=== PATIENT | female | born 1990 | race Caucasian/White ===

== ENCOUNTER 2020-01-07 07:30 | Inpatient (IN) ==
[2020-01-07] MEDS ORDERED: LACTATED RINGER'S 1,000 ML IV PRN (07:45)
[2020-01-07] MEDS ORDERED: OXYTOCIN 30 UNITS/500 ML BAG IV PRN ×2 (07:45)
[2020-01-07 08:04] LABS: Hematocrit (blood only) 29.6 % (37-47); Hemoglobin 9.2 g/dL (12.0-16.0); Mean Corpuscular Hemoglobin 25.3 pg (25-34); Mean Corpuscular Volume 81.3 fL (80-100); Mean Platelet Volume 10.5 fL (7.4-10.4); Platelet Count 260 K/uL (130-400); RDW Coefficient of Variation 15.2 % (11.5-14.5); RDW Standard Deviation 44.9 fL (36.4-46.3); Red Blood Count 3.64 M/uL (4.2-5.4); White Blood Count 10.81 K/uL (4.8-10.8)
[2020-01-07 08:24] LABS: Mean Corpuscular Hgb Conc 31.1 g/dL (32-36)
--- NOTE | 2020-01-07 08:31 | History & Physical Report ---
Date of Service January 07, 2020 Assessment & Plan (1) Encounter for induction of labor: Labs ordered including CMP due to HTN (138/92) on arrival. H/H 9.2/29.6; will continue to monitor patient. Proceed with induction of labor per Pitocin augmentation protocol. Pt does desire epidural for pain control. Consult to anesthesiology placed. Will continue to monitor patient. Anticipate . (2) Insulin controlled gestational diabetes mellitus (GDM) during , antepartum: Will continue to monitor blood glucose levels. Manage for A2GDM protocol. (3) Chlamydia infection affecting in third trimester: (4) : Admission and Anticipated Discharge Date Admission Date: January 07, 2020 History of Present Illness Primary Care Provider: Rupert Patel MD Jing Orona is a 29 y/o female currently at 39 WGA with an BRENNAN 01/14/20 as determined by LMP who is here for IOL. Her was complicated by late presentation for care (at 30 weeks), A2GDM, and persistent chlamydia infection. It is noted that her last was about 7 years ago (delivered 10/01/12) and with that she had pre-eclampsia; the delivery was a forceps-assisted vaginal delivery. Pt is doing well this morning. She denies any specific pain. No n/v. Tolerated dinner last night. Pt did not take her nightly insulin last night; last dose of insulin was Saturday night (01/04). - contractions; + movement; - fluid loss; some minimal bloody show/blood- tinged mucus Blood type: A+ Antibody screen: neg H.2 (today) Hct: 29.6 (today) WBC: 10.81 (today) Plt: 260 (today) Rubella: immune (11/11/19) VDRL/RPR: neg (11/11/19) Gonorrhea: neg (11/11/19) Chlamydia: POSITIVE (11/11/19 and repeat positive HIV: neg (11/11/19) HbSAg: neg (11/11/19) GBS: negative (12/22/19) COVID-19 negative (01/05/20) Other screens: CF: negative SMA: negative panorama: low risk, female Allergies Allergy/AdvReac Type Severity Reaction Status Date / Time Penicillins Allergy Unknown Unknown Verified 01/07/20 07:57 Home Medications Home Medications Medication Instructions Recorded Confirmed Type apple cider vinegar PO 10/30/19 01/06/20 History multivitamin with iron PO 11/11/19 01/06/20 History insulin NPH isoph U-100 human 100 10 units SQ QPM #10 ml 12/24/19 01/06/20 Rx unit/mL subcutaneous suspension azithromycin 500 mg tablet 1,000 mg PO DAILY 1 Days #2 tab 12/31/19 01/06/20 Rx cephalexin 500 mg capsule 500 mg PO TID 7 Days #21 cap 12/31/19 01/06/20 Rx Patient History Medical History (Updated 01/07/20 @ 10:01 by Alec Traore MD) Asthma Chlamydia infection affecting in third trimester Encounter for anatomic survey Hx of biophysical profile Insulin controlled gestational diabetes mellitus (GDM) during , antepartum Varicella vaccine Surgical History (Updated 01/07/20 @ 10:00 by Alec Traore MD) History of gastric bypass S/P cholecystectomy S/P dilation and curettage S/P wisdom tooth extraction Family History Grandmother (Paternal) Diabetes Myocardial infarction Heart disease Grandfather (Maternal) Diabetes Myocardial infarction Other Dyslipidemia Social History (Updated 11/06/19 @ 14:15 by Josette Alberts) Smoking Status: Former smoker Hx Alcohol Use: No Hx Substance Use: No Preferred Language: Palauan Communication Ability: Effective Beliefs That Will Affect Care: None marital status: Single marital status details: Marcus Robert ( [phone] Current Living Situation Comment: lives with father and daughter, 1 dog, current occupational status: employed current occupation: [employer] WORK[employer] Feels Safe at Home: Yes Review of Systems Denies fever, chills, sweats Denies shortness of breath, difficulty breathing, chest pain, palpitations, chest pressure. Denies breast pain. Denies dysuria. Denies leg pain. Denies headache or changes in vision. Physical Exam Physical Exam: General: Alert, oriented. No acute distress. Cardiac: Regular rate and rhythm, no murmurs/rubs/gallops. Respiratory: Clear to auscultation bilaterally a/p, no wheezes/rales/rhonchi. No increased work of breathing. Symmetrical chest rise. No respiratory distress. Abdomen: Gravid; full term. No tenderness to palpation. EFW 8-9# Pelvic: Dilation 4.5cm; Effacement 50%; Station -[address] Payton External FHT and external uterine monitors used; Category I tracing; moderate FHT variability, baseline 140bpm. Lower Extremities: 1+ bilateral lower extremity edema. No deep calf pain. Gloria's negative bilaterally Results & Data ([facility]) Vital Signs (Past 12 Hours) Vital Signs Pulse BP 01/07/20 07:42 83 138/92 Code Status & VTE Plan VTE Prophylaxis Plan VTE Prophylaxis will be ordered: No Supervising Physician Co-Signing Physician Notes Resident Physician Supervision Note: I was present with Dr. Castellon during the history and exam. I discussed the case with the resident and agree with the findings and plan as documented in the note. Any exceptions or clarifications are listed here: The patient is a 29-year-old 2 para 1 with an EDC of 13 January at 39-0/7 weeks gestational age who is admitted for induction for poorly controlled gestational diabetes on insulin. Patient did not present until 30 weeks gestational age for new OB visit. Sugars have been only moderately controlled and the patient has been somewhat noncompliant with insulin injections. Patient forgot to do her insulin on the evening prior to admission. course is also been remarkable for persistently abnormal chlamydia culture. This was secondary to the partner not being treated. The patient and her partner were allegedly treated at 38 weeks gestational age. Antibiotics was prescribed by me for both patient and partner. Plan induction of labor per Pitocin protocol. Pediatrics aware of the patient. Pain control as needed. Anticipate vaginal delivery. Documented By: Gabino Alicea Jr, MD, FACOG
[2020-01-07] MEDS ORDERED: fentaNYL citrate 100 MCG/2 ML VIAL ONE ×2 (09:34→09:42)
[2020-01-07] MEDS ORDERED: PROPOFOL IV EMULSION 10 MG/ML 20 ML VIAL IV ONE ×2 (09:40→10:42)
[2020-01-07] MEDS ORDERED: LIDOCAINE HCL 2% MPF (LOCAL) 5 ML VIAL INFIL ONE (09:40)
[2020-01-07] MEDS ORDERED: CEFAZOLIN 250 MG/ML 1 GM VIAL ONE (09:40)
[2020-01-07 09:41] LABS: Albumin Level 2.3 gm/dl (3.4-5.0); Calcium 8.7 mg/dl (8.5-10.1); Creatinine Clr Calc Pharmacy 143.4 ml/min; Est GFR (African American) 128.7; Potassium 3.9 mmol/L (3.5-5.1)
[2020-01-07] MEDS ORDERED: OXYTOCIN 10 UNITS/ML VIAL ONE ×3 (09:41→09:42)
[2020-01-07 09:45] LABS: Albumin Globulin Ratio 0.6 (0.9-2); Bilirubin,Total 0.2 mg/dl (0.2-1); Globulin 4.1 gm/dl (2.5-4.0); Total Protein 6.4 gm/dl (6.4-8.2)
[2020-01-07] MEDS ORDERED: ONDANSETRON INJ 2 MG/ML 2 ML VIAL ONE (09:51)
[2020-01-07] MEDS ORDERED: SUCCINYLCHOLINE 100MG/5ML SYR IV ONE (09:51)
[2020-01-07] MEDS ORDERED: ONDANSETRON INJ 2 MG/ML 2 ML VIAL IV PRN ×2 (10:01→10:24)
[2020-01-07] MEDS ORDERED: HYDROmorphone INJ 1 MG/ML SYRINGE IV PRN (10:01)
[2020-01-07] MEDS ORDERED: KETOROLAC 30 MG/ML VIAL IV PRN ×2 (10:01→10:24)
[2020-01-07] MEDS ORDERED: ATROPINE SULFATE 0.1 MG/ML 10ML SYR IV PRN (10:01)
[2020-01-07] MEDS ORDERED: PROMETHAZINE HCL 12.5 MG in SODIUM CHLORIDE 0.9% 50 ML IV PRN (10:01)
--- NOTE | 2020-01-07 10:01 | Anesthesiology Consultation ---
Date of Service January 07, 2020 Assessment & Plan (1) Encounter for pre-operative examination: Chart Review Chart Review: Acceptable Risk for Surgery (Emergent procedure) History Surgery Operation Date: 01/07/20 09:30 Proposed Procedures p Section in LD - Gabino Alicea Jr, MD, FACOG Height/Weight Height: 5 ft 6.5 in Weight: 108.136 kg Allergies Allergy/AdvReac Type Severity Reaction Status Date / Time Penicillins Allergy Unknown Unknown Verified 01/07/20 07:57 Medications Home Medications Medication Instructions Recorded Confirmed Last Taken apple cider vinegar PO 10/30/19 01/06/20 Unknown multivitamin with iron PO 11/11/19 01/06/20 Unknown insulin NPH isoph U-100 human 100 10 units SQ QPM #10 ml 12/24/19 01/06/20 Unknown unit/mL subcutaneous suspension azithromycin 500 mg tablet 1,000 mg PO DAILY 1 Days #2 tab 12/31/19 01/06/20 Unknown cephalexin 500 mg capsule 500 mg PO TID 7 Days #21 cap 12/31/19 01/06/20 Unknown Active Medications Generic Name Dose Route Start Last Admin Trade Name Freq PRN Reason Stop Dose Admin Lactated Ringer's 1,000 mls @ 125 mls/hr 01/07/20 07:45 01/07/20 08:51 Lr IV 01/09/20 07:44 125 mls/hr .Q8H PRN Administration L&D Protocol Protocol Oxytocin 30 units in 500 mls @ 2 mls/hr 01/07/20 07:45 01/07/20 08:52 Pitocin IV 01/09/20 07:44 0.12 units/hr .Q24H PRN 2 mls/hr Labor Induction/Augmentation Administration Protocol 0.12 UNITS/HR NPO Last Intake of Fluids Comment: Sips Last Intake of Solids Comment: Unknown Past Medical History Medical History (Updated 01/07/20 @ 10:01 by Alec Traore MD) Asthma Chlamydia infection affecting in third trimester Encounter for anatomic survey Hx of biophysical profile Insulin controlled gestational diabetes mellitus (GDM) during , antepartum Varicella vaccine Past Family History Family History Grandmother (Paternal) Diabetes Myocardial infarction Heart disease Grandfather (Maternal) Diabetes Myocardial infarction Other Dyslipidemia Past Surgical History Surgical History (Updated 01/07/20 @ 10:00 by Alec Traore MD) History of gastric bypass S/P cholecystectomy S/P dilation and curettage S/P wisdom tooth extraction Past Anesthesia History No Hx of Anesthesia Complications History of PONV No Hx of PONV and No Hx of Motion Sickness Social History Smoking Status: Former smoker Hx Alcohol Use: No Hx Substance Use: No Physical Exam Vital Signs Last Vital Signs Temp 36.9 C 01/07/20 07:44 Pulse 76 01/07/20 08:33 BP 136/83 01/07/20 08:33 Testing Laboratory Results 01/07/20 07:53 01/07/20 08:32 01/07/20 08:10 POC Glucose 119 H
[2020-01-07] MEDS ORDERED: SUPERCREAM 0.870% 15 GM JAR EXT PRN (10:24)
[2020-01-07] MEDS ORDERED: BENZOCAINE 20% AER SPR 82.5 GM CAN EXT PRN (10:24)
[2020-01-07] MEDS ORDERED: DiphenhydrAMINE HCL 50 MG/ML VIAL IV PRN (10:24)
[2020-01-07] MEDS ORDERED: DIPHTHERIA/TETANUS/PERTUSSIS 0.5 ML SYR/VIAL IM ONE (10:24)
[2020-01-07] MEDS ORDERED: HYDROCORTISONE ACETATE 25 MG SUPP PR PRN (10:24)
[2020-01-07 10:26] LABS: Base Excess Cord Venous Blood -5.2 mEq/L (-7.7-1.9); Cord Venous Blood HCO3 22 mmol/L (18.4-26.8); Cord Venous Blood PCO2 50 mmHg (30.4-57.2); Cord Venous Blood PO2 33 mmHg (14.1-43.3); Cord Venous Blood pH 7.27 (7.20-7.44)
[2020-01-07] MEDS ORDERED: NALOXONE HCL 0.4 MG/1 ML VIAL/CARP IV PRN (10:26)
[2020-01-07] MEDS ORDERED: MORPHINE SULFATE PCA 30 MG/30 ML IV PRN (10:26)
[2020-01-07 10:27] LABS: Base Excess Cord Arterial Bld -9.9 mEq/L (-9-1.8); CO2 Cord Arterial Blood 104 mmHg (39.1-73.5); HCO3 Cord Arterial Blood 25 mmol/L (19.7-28.5)
[2020-01-07 10:28] LABS: PO2 Cord Arterial Blood < 10 mmHg (4.1-31.7)
[2020-01-07] MEDS ORDERED: SODIUM CHLORIDE 0.9% 1000ML 1,000 ML IV SCH (10:30)
[2020-01-07] MEDS ORDERED: LACTATED RINGER'S 1,000 ML IV SCH (10:30)
[2020-01-07] MEDS ORDERED: MORPHINE SULFATE PCA 30 MG/30 ML ONE (10:32)
--- NOTE | 2020-01-07 10:36 | XRay Report ---
XR KUB/Abdomen 1 view CLINICAL HISTORY: no surgical count COMPARISON STUDY: No previous studies for comparison. FINDINGS: The soft tissues, psoas shadows, renal outlines and intestinal gas pattern appear normal. T here is no evidence for bowel obstruction. No abnormal abdominal calcifications are seen. IMPRESSION: Normal study. No evidence for a radiopaque foreign body. ACT 112: Negative or not required by law. The above report was generated using voice recognition software. It may contain grammatical, syntax or spelling errors. Electronically signed by: Jian Burns M.D. 01/07/2020 10:35 AM
--- NOTE | 2020-01-07 10:44 | Obstetrical Progress Note ---
Date of Service January 07, 2020 Assessment & Plan (1) Late care affecting : (2) Insulin controlled gestational diabetes mellitus (GDM) during , antepartum: - heart rate tracing category 2 with variability and accelerations -We will check glucoses every 4 hours -Increase Pitocin per induction protocol ' Addendum note: Approximately 10 minutes after artificial rupture of membranes for clear fluid baby developed bradycardic episode. Repeat digital examination showed cord prolapse with heart rate in the 70s. scalp electrode applied and stat section called. Provider remained dislodging the vertex and movement could be palpated. The patient was then taken back to the operative room for a stat section. A verbal consent was obtained from the patient and father of the baby. In the operating room Montero catheter was placed. Last scalp electrode heart rate of 70 noted. Please see operative note for details. Admission and Anticipated Discharge Date Admission Date: January 07, 2020 Subjective (Late Entry secondary to stat C/S) 29-year-old 2 para 1 at 39 weeks gestational age being induced for poor control insulin-dependent gestational diabetes. Patient a late registrant at 30 weeks gestational age. course remarkable for persistent chlamydia infection secondary to partner not being treated. Patient and partner successfully treated at 38 weeks gestational age. Patient forgot to take her insulin on the evening of 05 January. Physical Exam Gastrointestinal (Abdomen): Abdomen: Gravid, vertex, positive heart tones, estimated weight of 7-1/2 pounds Genitourinary: Cervix: 3 to 4 cm dilated/50%/-2, artificial rupture of membranes for clear fluid, head well applied to cervix, intrauterine pressure catheter placed Results & Data ([facility]) Vital Signs (Past 12 Hours) Vital Signs Temp Pulse BP Pulse Ox 01/07/20 10:34 64 152/88 H 01/07/20 10:32 66 100 01/07/20 10:27 69 100 01/07/20 10:22 78 133/75 97 01/07/20 08:33 76 136/83 01/07/20 07:44 98.4 F 83 138/92 01/07/20 07:42 83 138/92 PG Care Time/CCT Total # of Minutes Spent Total Time Spent with Patient: Total time spent is greater than 50% in coordination of care (as documented) at patient's floor/unit and/or counseling patient: Coding Level of Care Code None Diagnoses Late care affecting O09.30 Insulin controlled gestational diabetes mellitus (GDM) during , antepartum O24.414
--- NOTE | 2020-01-07 10:48 | Post Operative Brief Note ---
PG Immediate Post Op with CF Date of Surgery January 07, 2020 Pre & Post Diagnosis Pre-Op Dx: 1) Term 2) Poor control GDM on Insulin 3) Late Care 4)Prolapsed Umbilical Cord Post-Op Dx: 1) Same Operation Date: 01/07/20 09:30 <No data on this case meets the specified criteria> I identified the patient and participated in the time-out.: Yes Procedure Stat Primary Low Cervical Transvers C/S Operation Date: 01/07/20 09:30 <No data on this case meets the specified criteria> Surgeon Gabino Alicea Jr, MD, FACOG Petroleum Geologist Pratima Estimated Blood Loss 800 Findings See Below (Viable female , Art pH-7.0, Venous pH 7.27, normal appearing tubes and ovaries bilaterally)
--- NOTE | 2020-01-07 11:00 | Operative Report (OR) ---
DATE OF OPERATION: 01/07/2020 PREOPERATIVE DIAGNOSES: 1. Term . 2. Poorly controlled gestational diabetes, on insulin. 3. Late care. 4. Umbilical cord prolapse. POSTOPERATIVE DIAGNOSES: 1. Term . 2. Poorly controlled gestational diabetes, on insulin. 3. Late care. 4. Umbilical cord prolapse. PROCEDURE PERFORMED: Stat primary low cervical transverse section. SURGEON: Gabino Alicea MD. DISASTER RECOVERY MANAGER: Martínez Andujar MD. ANESTHESIA: General. FINDINGS: Viable female with arterial cord pH of 7.0 and venous cord pH of 7.27. Normal-appearing tubes and ovaries bilaterally. PROCEDURE IN DETAIL: The patient was taken to the operating room in a stat fashion for a stat section for a prolapsed umbilical cord. Montero catheter was inserted and the surgeon's hand was removed from the vagina. Verbal consent had been obtained from the patient for the procedure. No sponge and needle count was done preoperatively secondary to the stat nature. The abdomen was prepped with Betadine. A Pfannenstiel-type incision was made down to the subcutaneous tissue, which was opened in the midline and manually extended vertically. Rectus muscles were and the peritoneal cavity was entered. Uterus was entered sharply and extended in a semilunar fashion. Viable female infant was delivered. Cord was clamped and cut and the baby was passed off to pediatrics who was in attendance for the delivery. Cord gases and cord blood samples were obtained. Placenta was delivered spontaneously and sent for pathological evaluation. The uterus was exteriorized and wiped clean of any residual blood tissue and/or clot. The uterine incision was closed with 2 layers of 4-0 Vicryl, the first a running locking stitch, the second an imbricating stitch. Hemostasis was achieved and the uterus was returned to the pelvic cavity. Pericolic gutters were cleared bilaterally of any blood tissue and/or clot. The pelvis was thoroughly irrigated with 1000 mL of warm saline. Uterine incision was inspected for hemostasis again, which was present. The rectus muscle was plicated in the midline with a running 2-0 Vicryl stitch. The fascia was closed laterally with a running 0 Vicryl suture. Subcutaneous tissue was reapproximated with interrupted 2-0 plain sutures and the skin incision was closed with a 4-0 Monocryl subcuticular suture. Because of the stat nature of the procedure and the inability to do a sponge and needle count preoperatively, a stat KUB was performed. My visual reading of the KUB showed no sponges or instruments or needles in the abdomen. The patient was then taken to the recovery room in satisfactory condition. I attest to the content of the Intraoperative Record and any orders documented therein. Any exception s are noted below.
[2020-01-07] MEDS: OXYTOCIN 20 UNITS in LACTATED RINGER'S 1,000 ML IV SCH ×2 (11:07→20:33)
[2020-01-07 13:58] LABS: Creatinine Urine Random 45.4 mg/dl; Protein Creatinine Ratio Urine 0.4 (0-0.2); Total Protein Urine Random 19.5 mg/dl (0-11.9)
[2020-01-07] MEDS ORDERED: MAG SULFATE 4GM BOLUS FROM BAG IV ONE (14:13)
[2020-01-07] MEDS ORDERED: MAGNESIUM SULFATE / WTR 40 GM/1,000 ML BAG IV SCH (14:15)
--- NOTE | 2020-01-07 14:20 | Obstetrical Progress Note ---
Date of Service January 07, 2020 Assessment & Plan (1) Pre-eclampsia, : - elevated BP's since delivery - spot Urine/Creatine ration 0.4 - pp pre-eclampsia - will start Mg Subjective discussed surgery with patient Results & Data ([facility]) Vital Signs (Past 12 Hours) Vital Signs Temp Pulse Resp BP Pulse Ox 01/07/20 13:47 69 100 01/07/20 13:44 75 152/99 H 01/07/20 13:42 66 100 01/07/20 13:37 67 100 01/07/20 13:34 82 162/107 H 01/07/20 13:32 75 100 01/07/20 13:27 75 100 01/07/20 13:24 64 157/103 H 01/07/20 13:22 66 100 01/07/20 13:17 70 100 01/07/20 13:14 68 168/104 H 01/07/20 13:12 73 100 01/07/20 13:07 80 100 01/07/20 13:02 81 100 01/07/20 12:57 74 100 01/07/20 12:54 75 153/94 H 01/07/20 12:52 76 100 01/07/20 12:47 67 100 01/07/20 12:44 74 161/98 H 01/07/20 12:42 69 100 01/07/20 12:37 68 100 01/07/20 12:35 71 174/95 H 01/07/20 12:34 70 183/106 H 01/07/20 12:32 75 100 01/07/20 12:27 70 100 01/07/20 12:24 68 168/104 H 01/07/20 12:22 67 100 01/07/20 12:17 69 100 01/07/20 12:14 67 176/105 H 01/07/20 12:12 65 100 01/07/20 12:07 68 100 01/07/20 12:04 65 176/103 H 01/07/20 12:02 65 100 01/07/20 11:57 67 100 01/07/20 11:54 62 176/101 H 01/07/20 11:53 67 100 01/07/20 11:47 70 100 01/07/20 11:44 60 168/98 H 01/07/20 11:42 76 100 01/07/20 11:37 68 100 01/07/20 11:34 77 149/94 H 01/07/20 11:32 62 100 01/07/20 11:27 59 L 100 01/07/20 11:24 64 148/94 H 01/07/20 11:22 65 16 100 01/07/20 11:17 65 100 01/07/20 11:14 64 155/97 H 01/07/20 11:12 64 18 100 01/07/20 11:07 66 100 01/07/20 11:04 68 160/94 H 01/07/20 11:02 65 18 100 01/07/20 10:57 67 100 01/07/20 10:54 64 149/94 H 01/07/20 10:52 62 18 100 01/07/20 10:47 67 100 01/07/20 10:44 65 145/92 H 01/07/20 10:42 63 18 100 01/07/20 10:37 69 100 01/07/20 10:34 64 152/88 H 01/07/20 10:32 66 18 100 01/07/20 10:27 69 100 01/07/20 10:22 98.4 F 78 18 133/75 97 01/07/20 08:33 76 136/83 01/07/20 07:55 20 01/07/20 07:44 98.4 F 83 138/92 01/07/20 07:42 83 138/92 01/07/20 07:40 18
[2020-01-07] MEDS: cephALEXin 500 MG CAP PO SCH ×2 (14:40→21:40)
--- NOTE | 2020-01-07 16:17 | Anesthesiology Progress Note ---
Date of Service January 07, 2020 Anesthesia Post Procedure Vital Signs Vital Signs: Temp Pulse Resp BP Pulse Ox 01/07/20 16:14 70 140/76 98 01/07/20 16:09 68 146/80 H 98 01/07/20 16:04 81 138/81 98 01/07/20 15:59 68 140/84 98 01/07/20 15:54 80 138/83 98 01/07/20 15:49 79 144/86 H 98 01/07/20 15:44 82 147/88 H 99 01/07/20 15:42 20 01/07/20 15:39 82 148/85 H 99 01/07/20 15:34 77 142/84 H 98 01/07/20 15:29 74 149/85 H 98 01/07/20 15:24 82 137/82 98 01/07/20 15:23 14 01/07/20 15:19 86 148/89 H 98 01/07/20 15:14 90 137/87 98 01/07/20 15:10 16 01/07/20 15:09 80 147/88 H 98 01/07/20 15:04 73 140/85 99 01/07/20 15:00 12 01/07/20 14:59 78 135/84 98 01/07/20 14:54 63 138/87 99 01/07/20 14:52 16 01/07/20 14:49 63 99 01/07/20 14:44 67 99 01/07/20 14:43 71 146/87 H 01/07/20 14:39 74 99 01/07/20 14:34 69 99 01/07/20 14:29 68 99 01/07/20 14:24 75 99 01/07/20 13:47 69 100 01/07/20 13:44 75 152/99 H 01/07/20 13:42 66 100 01/07/20 13:37 67 100 01/07/20 13:34 82 162/107 H 01/07/20 13:32 75 100 01/07/20 13:27 75 100 01/07/20 13:24 64 157/103 H 01/07/20 13:22 66 100 01/07/20 13:17 70 100 01/07/20 13:14 68 168/104 H 01/07/20 13:12 73 100 01/07/20 13:07 80 100 01/07/20 13:02 81 100 01/07/20 12:57 74 100 01/07/20 12:54 75 153/94 H 01/07/20 12:52 76 100 01/07/20 12:47 67 100 01/07/20 12:44 74 161/98 H 01/07/20 12:42 69 100 01/07/20 12:37 68 100 01/07/20 12:35 71 174/95 H 01/07/20 12:34 70 183/106 H 01/07/20 12:32 75 100 01/07/20 12:27 70 100 01/07/20 12:24 68 168/104 H 01/07/20 12:22 67 100 01/07/20 12:17 69 100 01/07/20 12:14 67 176/105 H 01/07/20 12:12 65 100 01/07/20 12:07 68 100 01/07/20 12:04 65 176/103 H 01/07/20 12:02 65 100 01/07/20 11:57 67 100 01/07/20 11:54 62 176/101 H 01/07/20 11:53 67 100 01/07/20 11:47 70 100 01/07/20 11:44 60 168/98 H 01/07/20 11:42 76 100 01/07/20 11:37 68 100 01/07/20 11:34 77 149/94 H 01/07/20 11:32 62 100 01/07/20 11:27 59 L 100 01/07/20 11:24 64 148/94 H 01/07/20 11:22 65 16 100 01/07/20 11:17 65 100 01/07/20 11:14 64 155/97 H 01/07/20 11:12 64 18 100 01/07/20 11:07 66 100 01/07/20 11:04 68 160/94 H 01/07/20 11:02 65 18 100 01/07/20 10:57 67 100 01/07/20 10:54 64 149/94 H 01/07/20 10:52 62 18 100 01/07/20 10:47 67 100 01/07/20 10:44 65 145/92 H 01/07/20 10:42 63 18 100 01/07/20 10:37 69 100 01/07/20 10:34 64 152/88 H 01/07/20 10:32 66 18 100 01/07/20 10:27 69 100 01/07/20 10:22 36.9 C 78 18 133/75 97 01/07/20 08:33 76 136/83 01/07/20 08:25 18 01/07/20 07:55 20 01/07/20 07:44 36.9 C 83 138/92 01/07/20 07:42 83 138/92 01/07/20 07:40 18 Pain Intensity Lower Abdomen: Pain Intensity: 0 Transfer of Care Handoff Completed per policy Notes Mental Status: alert / awake / arousable Patient Amnestic to Procedure: Yes Nausea / Vomiting: adequately controlled Pain: adequately controlled Airway Patency, RR, SpO2: stable & adequate BP & HR: stable & adequate Hydration State: stable & adequate Anesthetic Complications: no major complications apparent
[2020-01-08 03:30] LABS: Basophils # (auto) 0.01 K/uL (0-0.2); Basophils % (auto) 0.1 %; Eosinophils # (auto) 0.17 K/uL (0-0.5); Eosinophils % (auto) 1.3 %; Hematocrit (blood only) 26.6 % (37-47); Hemoglobin 8.3 g/dL (12.0-16.0); Immature Granulocytes # (auto) 0.09 K/uL (0.00-0.02); Immature Granulocytes % (auto) 0.7 %; Lymphocytes % (auto) 13.2 %; Mean Corpuscular Hemoglobin 25.2 pg (25-34); Mean Corpuscular Hgb Conc 31.2 g/dL (32-36); Mean Corpuscular Volume 80.6 fL (80-100); Mean Platelet Volume 9.7 fL (7.4-10.4); Monocytes # (auto) 0.86 K/uL (0.11-0.59); Monocytes % (auto) 6.7 %; Neutrophils # (auto) 10.08 K/uL (1.4-6.5); Platelet Count 215 K/uL (130-400); RDW Coefficient of Variation 15.2 % (11.5-14.5); RDW Standard Deviation 44.8 fL (36.4-46.3); White Blood Count 12.91 K/uL (4.8-10.8)
--- NOTE | 2020-01-08 06:27 | Obstetrical Progress Note ---
Date of Service <Lindsay Luna DO - Last Filed: 01/08/20 07:31> January 08, 2020 Assessment & Plan <Lindsay Luna DO - Last Filed: 01/08/20 07:31> (1) care following delivery: - Will d/c mag at this time. 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 Will continue Ibuprofen, Tylenol, and Percocet for pain control. - Plan to pull urinary catheter at 24hours (around 11:00 AM). - Hgb 8.3 this AM. Continue iron. - Will plan to slowly advance diet to liquid diet. - Will continue to monitor patient. 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 Her was complicated by late presentation for care at 30 weeks, persistent chlamydia with tx at 38 weeks, and uncontrolled A2GDM. After delivery, pt developed pre-eclampsia and was started on mag. She reports feeling well "okay" this morning. Moderate abdominal cramping and 5/10 pain being managed with morphine. Urinary catheter in place. Pt remains on liquid diet and reports having an m[place] ice for dinner last night without nausea or vomiting. Pt has not been OOB. She is not yet with flatus. Pt would like to start pumping for breast milk but she has not yet started this. Review of Systems Denies fever or chills. Denies shortness of breath or cough. Denies chest pain. Denies breast pain. + b/l pedal edema. Denies headache or changes in vision. Physical Exam <Lindsay Luna DO - Last Filed: 01/08/20 07:31> General: Alert, oriented. No acute distress. Cardiac: Regular rate and rhythm. No murmurs. Respiratory: Clear to auscultation bilaterally a/p, no wheezes/rales/rhonchi. No increased work of breathing. Symmetrical chest rise. No respiratory distress. Abdomen: Soft, diffuse tenderness to palpation. Bowel sounds present but hypoactive. Uterus: Uterine fundus firm, palpable 3 cm above umbilicus. Surgical scar with dressing that is C/D/I. Lower Extremities: +2-3 pedal edema bilaterally. No deep calf pain. Gloria's negative bilaterally. Results & Data ([facility]) <Lindsay Luna, DO - Last Filed: 01/08/20 07:31> Vital Signs (Past 12 Hours) Vital Signs Temp Pulse Resp BP Pulse Ox 01/08/20 06:19 92 H 99 01/08/20 06:15 99 H 121/58 L 01/08/20 06:14 100 H 98 01/08/20 06:09 97 H 98 01/08/20 06:04 79 97 01/08/20 05:59 81 18 122/58 L 97 01/08/20 05:54 81 96 01/08/20 05:49 82 96 01/08/20 05:44 85 130/62 96 01/08/20 05:39 83 97 01/08/20 05:34 85 97 01/08/20 05:29 81 128/61 96 01/08/20 05:24 80 98 01/08/20 05:19 90 97 01/08/20 05:14 85 123/59 L 97 01/08/20 05:09 80 98 01/08/20 05:04 84 96 01/08/20 04:59 86 18 132/61 97 01/08/20 04:54 87 96 01/08/20 04:49 83 96 01/08/20 04:44 81 126/60 96 01/08/20 04:39 82 97 01/08/20 04:34 90 97 01/08/20 04:29 86 124/60 97 01/08/20 04:24 84 97 01/08/20 04:19 84 97 01/08/20 04:14 86 131/59 L 97 01/08/20 04:09 86 97 01/08/20 04:04 87 97 01/08/20 04:00 13 01/08/20 03:59 84 135/63 97 01/08/20 03:54 87 97 01/08/20 03:49 85 97 01/08/20 03:48 95 H 94 01/08/20 03:44 87 129/60 98 01/08/20 03:39 84 99 01/08/20 03:34 82 98 01/08/20 03:29 82 133/63 99 01/08/20 03:24 86 100 01/08/20 03:19 82 99 01/08/20 03:14 84 131/63 98 01/08/20 03:09 83 99 01/08/20 03:04 80 99 01/08/20 02:59 36.9 C 99 H 18 129/58 L 97 01/08/20 02:54 84 97 01/08/20 02:49 88 97 01/08/20 02:44 85 133/63 98 01/08/20 02:39 84 98 01/08/20 02:34 81 98 01/08/20 02:29 84 128/62 99 01/08/20 02:24 84 99 01/08/20 02:19 93 H 98 01/08/20 02:14 86 130/63 97 01/08/20 02:09 83 98 01/08/20 02:04 84 99 01/08/20 01:59 83 18 130/65 99 01/08/20 01:54 82 99 01/08/20 01:49 77 98 01/08/20 01:44 80 135/65 97 01/08/20 01:39 78 98 01/08/20 01:34 78 99 01/08/20 01:29 82 132/66 100 01/08/20 01:24 80 99 01/08/20 01:19 77 97 01/08/20 01:14 84 126/65 97 01/08/20 01:09 83 97 01/08/20 01:04 82 97 01/08/20 00:59 81 18 131/67 97 01/08/20 00:54 79 98 01/08/20 00:49 83 97 01/08/20 00:44 85 132/70 97 01/08/20 00:39 79 98 01/08/20 00:34 83 98 01/08/20 00:29 78 126/66 98 01/08/20 00:24 78 98 01/08/20 00:19 81 99 01/08/20 00:14 80 132/72 99 01/08/20 00:09 81 99 01/08/20 00:04 94 H 99 01/07/20 23:59 82 18 132/71 97 01/07/20 23:54 79 98 01/07/20 23:49 80 98 01/07/20 23:44 75 134/75 98 01/07/20 23:39 87 99 01/07/20 23:34 77 100 01/07/20 23:29 79 135/77 100 01/07/20 23:24 86 100 01/07/20 23:19 107 H 99 01/07/20 23:14 84 132/74 98 01/07/20 23:09 93 H 98 01/07/20 23:04 84 100 01/07/20 22:59 37.0 C 82 18 138/76 100 01/07/20 22:54 97 H 161/77 H 99 01/07/20 22:49 88 148/76 H 99 01/07/20 22:44 81 146/69 H 97 01/07/20 22:39 76 146/65 H 98 01/07/20 22:34 76 147/71 H 98 01/07/20 22:29 84 148/75 H 99 01/07/20 22:24 85 149/73 H 100 01/07/20 22:19 92 H 141/71 H 98 01/07/20 22:14 86 151/78 H 100 01/07/20 22:09 99 H 147/75 H 99 01/07/20 22:04 77 143/71 H 97 01/07/20 21:59 73 18 143/70 H 98 01/07/20 21:54 91 H 146/73 H 100 01/07/20 21:49 80 155/78 H 99 01/07/20 21:44 88 172/79 H 99 01/07/20 21:39 80 151/79 H 98 01/07/20 21:34 85 150/77 H 97 01/07/20 21:29 88 147/78 H 99 01/07/20 21:24 77 144/70 H 98 01/07/20 21:19 73 139/66 97 01/07/20 21:14 71 148/74 H 99 01/07/20 21:09 87 155/81 H 98 01/07/20 21:04 81 157/81 H 98 01/07/20 20:59 85 18 160/97 H 98 01/07/20 20:54 86 125/65 97 01/07/20 20:49 74 123/64 97 01/07/20 20:44 73 124/67 97 01/07/20 20:39 72 120/68 97 01/07/20 20:34 87 137/78 98 01/07/20 20:29 80 135/69 97 01/07/20 20:24 83 133/72 97 01/07/20 20:19 81 144/80 H 98 01/07/20 20:14 90 149/86 H 98 01/07/20 20:09 84 151/85 H 98 01/07/20 20:04 92 H 152/86 H 99 01/07/20 19:59 74 18 135/76 98 01/07/20 19:54 80 145/78 H 99 01/07/20 19:49 83 142/73 H 99 01/07/20 19:44 88 143/70 H 98 01/07/20 19:39 90 156/81 H 97 01/07/20 19:34 89 156/85 H 100 01/07/20 19:29 98 H 155/90 H 99 01/07/20 19:24 85 150/86 H 100 01/07/20 19:19 82 146/86 H 100 01/07/20 19:14 78 146/83 H 100 01/07/20 19:09 85 144/81 H 99 01/07/20 19:04 36.7 C 88 18 142/85 H 99 01/07/20 18:59 70 139/82 100 01/07/20 18:54 68 132/79 99 01/07/20 18:49 66 145/91 H 100 01/07/20 18:44 82 142/86 H 100 01/07/20 18:39 77 140/79 100 01/07/20 18:34 81 135/83 100 01/07/20 18:29 36.5 C 79 16 142/84 H 100 01/07/20 18:24 75 138/79 100 <Gabino Alicea Jr, MD, FACOG - Last Filed: 01/08/20 07:41> Co-Signing Physician Notes Resident Physician Supervision Note: I was present with Dr. Luna during the history and exam. I discussed the case with the resident and agree with the findings and plan as documented in the note. Any exceptions or clarifications are listed here: Will d/c Mg and move to floor, discussed with patient ambulation. Documented By: Gabino Alicea Jr, MD, FACOG
[2020-01-08] MEDS: PRENATAL VITAMIN 1 TAB PO SCH (09:02)
[2020-01-08] MEDS: FERROUS SULFATE 325 MG TAB PO SCH (09:02)
[2020-01-08] MEDS: cephALEXin 500 MG CAP PO SCH ×3 (09:03→21:32)
[2020-01-08] MEDS: OXYCODONE/ACETAMINOPHEN 5mg/325mg TAB PO PRN ×4 (09:10→21:31)
[2020-01-08] MEDS: IBUPROFEN 600 MG TAB PO PRN ×4 (09:11→21:31)
--- NOTE | 2020-01-08 12:05 | Anesthesiology Progress Note ---
Date of Service January 08, 2020 Anesthesia Post Procedure Vital Signs Vital Signs: Temp Pulse Pulse Pulse Pulse Resp BP 01/08/20 08:50 37.3 C 82 20 01/08/20 08:21 36.8 C 93 H 18 01/08/20 07:44 93 H 134/67 01/08/20 07:39 94 H 01/08/20 07:34 89 01/08/20 07:29 87 131/64 01/08/20 07:24 99 H 01/08/20 07:22 37.1 C 102 H 16 01/08/20 07:19 95 H 01/08/20 07:16 88 128/64 01/08/20 07:15 90 01/08/20 07:14 89 126/62 01/08/20 07:10 80 01/08/20 07:09 83 01/08/20 07:04 90 01/08/20 06:59 88 126/60 01/08/20 06:58 82 01/08/20 06:54 92 H 01/08/20 06:49 85 01/08/20 06:48 83 01/08/20 06:44 80 129/62 01/08/20 06:41 87 01/08/20 06:39 87 01/08/20 06:34 85 01/08/20 06:32 87 01/08/20 06:29 86 126/62 01/08/20 06:26 83 01/08/20 06:24 89 01/08/20 06:19 92 H 01/08/20 06:15 99 H 121/58 L 01/08/20 06:14 100 H 01/08/20 06:09 97 H 01/08/20 06:04 79 01/08/20 05:59 81 18 122/58 L 01/08/20 05:54 81 01/08/20 05:49 82 01/08/20 05:44 85 130/62 01/08/20 05:39 83 01/08/20 05:34 85 01/08/20 05:29 81 128/61 01/08/20 05:24 80 01/08/20 05:19 90 01/08/20 05:14 85 123/59 L 01/08/20 05:09 80 01/08/20 05:04 84 01/08/20 04:59 86 18 132/61 01/08/20 04:54 87 01/08/20 04:49 83 01/08/20 04:44 81 126/60 01/08/20 04:39 82 01/08/20 04:34 90 01/08/20 04:29 86 124/60 01/08/20 04:24 84 01/08/20 04:19 84 01/08/20 04:14 86 131/59 L 01/08/20 04:09 86 01/08/20 04:04 87 01/08/20 04:00 13 01/08/20 03:59 84 135/63 01/08/20 03:54 87 01/08/20 03:49 85 01/08/20 03:48 95 H 01/08/20 03:44 87 129/60 01/08/20 03:39 84 01/08/20 03:34 82 01/08/20 03:29 82 133/63 01/08/20 03:24 86 01/08/20 03:19 82 01/08/20 03:14 84 131/63 01/08/20 03:09 83 01/08/20 03:04 80 01/08/20 02:59 36.9 C 99 H 18 129/58 L 01/08/20 02:54 84 01/08/20 02:49 88 01/08/20 02:44 85 133/63 01/08/20 02:39 84 01/08/20 02:34 81 01/08/20 02:29 84 128/62 01/08/20 02:24 84 01/08/20 02:19 93 H 01/08/20 02:14 86 130/63 01/08/20 02:09 83 01/08/20 02:04 84 01/08/20 01:59 83 18 130/65 01/08/20 01:54 82 01/08/20 01:49 77 01/08/20 01:44 80 135/65 01/08/20 01:39 78 01/08/20 01:34 78 01/08/20 01:29 82 132/66 01/08/20 01:24 80 01/08/20 01:19 77 01/08/20 01:14 84 126/65 01/08/20 01:09 83 01/08/20 01:04 82 01/08/20 00:59 81 18 131/67 01/08/20 00:54 79 01/08/20 00:49 83 01/08/20 00:44 85 132/70 01/08/20 00:39 79 01/08/20 00:34 83 01/08/20 00:29 78 126/66 01/08/20 00:24 78 01/08/20 00:19 81 01/08/20 00:14 80 132/72 01/08/20 00:09 81 01/08/20 00:04 94 H 01/07/20 23:59 82 18 132/71 01/07/20 23:54 79 01/07/20 23:49 80 01/07/20 23:44 75 134/75 01/07/20 23:39 87 01/07/20 23:34 77 01/07/20 23:29 79 135/77 01/07/20 23:24 86 01/07/20 23:19 107 H 01/07/20 23:14 84 132/74 01/07/20 23:09 93 H 01/07/20 23:04 84 01/07/20 22:59 37.0 C 82 18 138/76 01/07/20 22:54 97 H 161/77 H 01/07/20 22:49 88 148/76 H 01/07/20 22:44 81 146/69 H 01/07/20 22:39 76 146/65 H 01/07/20 22:34 76 147/71 H 01/07/20 22:29 84 148/75 H 01/07/20 22:24 85 149/73 H 01/07/20 22:19 92 H 141/71 H 01/07/20 22:14 86 151/78 H 01/07/20 22:09 99 H 147/75 H 01/07/20 22:04 77 143/71 H 01/07/20 21:59 73 18 143/70 H 01/07/20 21:54 91 H 146/73 H 01/07/20 21:49 80 155/78 H 01/07/20 21:44 88 172/79 H 01/07/20 21:39 80 151/79 H 01/07/20 21:34 85 150/77 H 01/07/20 21:29 88 147/78 H 01/07/20 21:24 77 144/70 H 01/07/20 21:19 73 139/66 01/07/20 21:14 71 148/74 H 01/07/20 21:09 87 155/81 H 01/07/20 21:04 81 157/81 H 01/07/20 20:59 85 18 160/97 H 01/07/20 20:54 86 125/65 01/07/20 20:49 74 123/64 01/07/20 20:44 73 124/67 01/07/20 20:39 72 120/68 01/07/20 20:34 87 137/78 01/07/20 20:29 80 135/69 01/07/20 20:24 83 133/72 01/07/20 20:19 81 144/80 H 01/07/20 20:14 90 149/86 H 01/07/20 20:09 84 151/85 H 01/07/20 20:04 92 H 152/86 H 01/07/20 19:59 74 18 135/76 01/07/20 19:54 80 145/78 H 01/07/20 19:49 83 142/73 H 01/07/20 19:44 88 143/70 H 01/07/20 19:39 90 156/81 H 01/07/20 19:34 89 156/85 H 01/07/20 19:29 98 H 155/90 H 01/07/20 19:24 85 150/86 H 01/07/20 19:19 82 146/86 H 01/07/20 19:14 78 146/83 H 01/07/20 19:09 85 144/81 H 01/07/20 19:04 36.7 C 88 18 142/85 H 01/07/20 18:59 70 139/82 01/07/20 18:54 68 132/79 01/07/20 18:49 66 145/91 H 01/07/20 18:44 82 142/86 H 01/07/20 18:39 77 140/79 01/07/20 18:34 81 135/83 01/07/20 18:29 36.5 C 79 16 142/84 H 01/07/20 18:24 75 138/79 01/07/20 18:19 95 H 136/80 01/07/20 18:14 73 137/79 01/07/20 18:09 72 136/75 01/07/20 18:04 70 145/74 H 01/07/20 17:59 67 142/86 H 01/07/20 17:54 65 137/82 01/07/20 17:49 92 H 131/82 01/07/20 17:44 70 128/77 01/07/20 17:39 74 74 12 132/80 01/07/20 17:34 74 130/81 01/07/20 17:29 73 143/84 H 01/07/20 17:24 74 138/75 01/07/20 17:19 68 142/82 H 01/07/20 17:14 70 140/79 01/07/20 17:09 84 135/81 01/07/20 17:04 83 143/80 H 01/07/20 16:59 70 138/78 01/07/20 16:54 91 H 130/74 01/07/20 16:49 77 132/77 01/07/20 16:45 68 14 01/07/20 16:44 76 130/73 01/07/20 16:39 75 141/77 H 01/07/20 16:34 75 142/76 H 01/07/20 16:29 75 129/75 01/07/20 16:24 73 140/79 01/07/20 16:19 74 143/83 H 01/07/20 16:15 20 01/07/20 16:14 70 140/76 01/07/20 16:09 68 146/80 H 01/07/20 16:04 81 138/81 01/07/20 15:59 68 140/84 01/07/20 15:54 80 138/83 01/07/20 15:49 79 144/86 H 01/07/20 15:44 82 147/88 H 01/07/20 15:42 20 01/07/20 15:39 82 148/85 H 01/07/20 15:34 77 142/84 H 01/07/20 15:29 74 149/85 H 01/07/20 15:24 82 137/82 01/07/20 15:23 14 01/07/20 15:19 86 148/89 H 01/07/20 15:15 36.7 C 18 L 13 01/07/20 15:14 90 137/87 01/07/20 15:10 16 01/07/20 15:09 80 147/88 H 01/07/20 15:04 73 140/85 01/07/20 15:00 12 01/07/20 14:59 78 135/84 01/07/20 14:54 63 138/87 01/07/20 14:52 16 01/07/20 14:49 63 01/07/20 14:44 67 01/07/20 14:43 71 146/87 H 01/07/20 14:39 74 01/07/20 14:34 69 01/07/20 14:29 68 01/07/20 14:24 75 01/07/20 13:47 69 01/07/20 13:44 75 152/99 H 01/07/20 13:42 66 01/07/20 13:37 67 01/07/20 13:34 82 162/107 H 01/07/20 13:32 75 01/07/20 13:27 75 01/07/20 13:24 64 157/103 H 01/07/20 13:22 66 01/07/20 13:17 70 01/07/20 13:14 68 168/104 H 01/07/20 13:12 73 01/07/20 13:07 80 01/07/20 13:02 81 01/07/20 12:57 74 01/07/20 12:54 75 153/94 H 01/07/20 12:52 76 01/07/20 12:47 67 01/07/20 12:44 74 161/98 H 01/07/20 12:42 69 01/07/20 12:37 68 01/07/20 12:35 71 174/95 H 01/07/20 12:34 70 183/106 H 01/07/20 12:32 75 01/07/20 12:27 70 01/07/20 12:24 68 168/104 H 01/07/20 12:22 67 01/07/20 12:17 69 01/07/20 12:14 67 176/105 H 01/07/20 12:12 65 01/07/20 12:07 68 BP BP Pulse Ox 01/08/20 08:50 111/75 94 01/08/20 08:21 135/83 94 01/08/20 07:44 08 07:39 97 01/08/20 07:34 97 01/08/20 07:29 94 01/08/20 07:24 96 01/08/20 07:22 128/64 96 01/08/20 07:19 94 01/08/20 07:16 01/08/20 07:15 94 01/08/20 07:14 95 01/08/20 07:10 94 01/08/20 07:09 94 01/08/20 07:04 93 01/08/20 06:59 93 01/08/20 06:58 94 01/08/20 06:54 95 01/08/20 06:49 95 01/08/20 06:48 94 01/08/20 06:44 94 01/08/20 06:41 94 01/08/20 06:39 96 01/08/20 06:34 95 01/08/20 06:32 94 01/08/20 06:29 94 01/08/20 06:26 94 01/08/20 06:24 95 01/08/20 06:19 99 01/08/20 06:15 01/08/20 06:14 98 01/08/20 06:09 98 01/08/20 06:04 97 01/08/20 05:59 97 01/08/20 05:54 96 01/08/20 05:49 96 01/08/20 05:44 96 01/08/20 05:39 97 01/08/20 05:34 97 01/08/20 05:29 96 01/08/20 05:24 98 01/08/20 05:19 97 01/08/20 05:14 97 01/08/20 05:09 98 01/08/20 05:04 96 01/08/20 04:59 97 01/08/20 04:54 96 01/08/20 04:49 96 01/08/20 04:44 96 01/08/20 04:39 97 01/08/20 04:34 97 01/08/20 04:29 97 01/08/20 04:24 97 01/08/20 04:19 97 01/08/20 04:14 97 01/08/20 04:09 97 01/08/20 04:04 97 01/08/20 04:00 01/08/20 03:59 97 01/08/20 03:54 97 01/08/20 03:49 97 01/08/20 03:48 94 01/08/20 03:44 98 01/08/20 03:39 99 01/08/20 03:34 98 01/08/20 03:29 99 01/08/20 03:24 100 01/08/20 03:19 99 01/08/20 03:14 98 01/08/20 03:09 99 01/08/20 03:04 99 01/08/20 02:59 97 01/08/20 02:54 97 01/08/20 02:49 97 01/08/20 02:44 98 01/08/20 02:39 98 01/08/20 02:34 98 01/08/20 02:29 99 01/08/20 02:24 99 01/08/20 02:19 98 01/08/20 02:14 97 01/08/20 02:09 98 01/08/20 02:04 99 01/08/20 01:59 99 01/08/20 01:54 99 01/08/20 01:49 98 01/08/20 01:44 97 01/08/20 01:39 98 01/08/20 01:34 99 01/08/20 01:29 100 01/08/20 01:24 99 01/08/20 01:19 97 01/08/20 01:14 97 01/08/20 01:09 97 01/08/20 01:04 97 01/08/20 00:59 97 01/08/20 00:54 98 01/08/20 00:49 97 01/08/20 00:44 97 01/08/20 00:39 98 01/08/20 00:34 98 01/08/20 00:29 98 01/08/20 00:24 98 01/08/20 00:19 99 01/08/20 00:14 99 01/08/20 00:09 99 01/08/20 00:04 99 01/07/20 23:59 97 01/07/20 23:54 98 01/07/20 23:49 98 01/07/20 23:44 98 01/07/20 23:39 99 01/07/20 23:34 100 01/07/20 23:29 100 01/07/20 23:24 100 01/07/20 23:19 99 01/07/20 23:14 98 01/07/20 23:09 98 01/07/20 23:04 100 01/07/20 22:59 100 01/07/20 22:54 99 01/07/20 22:49 99 01/07/20 22:44 97 01/07/20 22:39 98 01/07/20 22:34 98 01/07/20 22:29 99 01/07/20 22:24 100 01/07/20 22:19 98 01/07/20 22:14 100 01/07/20 22:09 99 01/07/20 22:04 97 01/07/20 21:59 98 01/07/20 21:54 100 01/07/20 21:49 99 01/07/20 21:44 99 01/07/20 21:39 98 01/07/20 21:34 97 01/07/20 21:29 99 01/07/20 21:24 98 01/07/20 21:19 97 01/07/20 21:14 99 01/07/20 21:09 98 01/07/20 21:04 98 01/07/20 20:59 98 01/07/20 20:54 97 01/07/20 20:49 97 01/07/20 20:44 97 01/07/20 20:39 97 01/07/20 20:34 98 01/07/20 20:29 97 01/07/20 20:24 97 01/07/20 20:19 98 01/07/20 20:14 98 01/07/20 20:09 98 01/07/20 20:04 99 01/07/20 19:59 98 01/07/20 19:54 99 01/07/20 19:49 99 01/07/20 19:44 98 01/07/20 19:39 97 01/07/20 19:34 100 01/07/20 19:29 99 01/07/20 19:24 100 01/07/20 19:19 100 01/07/20 19:14 100 01/07/20 19:09 99 01/07/20 19:04 99 01/07/20 18:59 100 01/07/20 18:54 99 01/07/20 18:49 100 01/07/20 18:44 100 01/07/20 18:39 100 01/07/20 18:34 100 01/07/20 18:29 100 01/07/20 18:24 100 01/07/20 18:19 100 01/07/20 18:14 99 01/07/20 18:09 100 01/07/20 18:04 99 01/07/20 17:59 100 01/07/20 17:54 99 01/07/20 17:49 100 01/07/20 17:44 100 01/07/20 17:39 132/80 100 01/07/20 17:34 100 01/07/20 17:29 98 01/07/20 17:24 98 01/07/20 17:19 99 01/07/20 17:14 99 01/07/20 17:09 99 01/07/20 17:04 99 01/07/20 16:59 99 01/07/20 16:54 99 01/07/20 16:49 98 01/07/20 16:45 132/77 98 01/07/20 16:44 98 01/07/20 16:39 98 01/07/20 16:34 98 01/07/20 16:29 98 01/07/20 16:24 98 01/07/20 16:19 98 01/07/20 16:15 01/07/20 16:14 98 01/07/20 16:09 98 01/07/20 16:04 98 01/07/20 15:59 98 01/07/20 15:54 98 01/07/20 15:49 98 01/07/20 15:44 99 01/07/20 15:42 01/07/20 15:39 99 01/07/20 15:34 98 01/07/20 15:29 98 01/07/20 15:24 98 01/07/20 15:23 01/07/20 15:19 98 01/07/20 15:15 148/89 H 98 01/07/20 15:14 98 01/07/20 15:10 01/07/20 15:09 98 01/07/20 15:04 99 01/07/20 15:00 01/07/20 14:59 98 01/07/20 14:54 01/07/20 14:52 01/07/20 14:49 01/07/20 14:44 01/07/20 14:43 01/07/20 14:39 01/07/20 14:34 99 01/07/20 14:29 99 01/07/20 14:24 99 01/07/20 13:47 100 01/07/20 13:44 01/07/20 13:42 100 01/07/20 13:37 100 01/07/20 13:34 01/07/20 13:32 100 01/07/20 13:27 100 01/07/20 13:24 01/07/20 13:22 100 01/07/20 13:17 100 01/07/20 13:14 01/07/20 13:12 100 01/07/20 13:07 100 01/07/20 13:02 100 01/07/20 12:57 01/07/20 12:54 01/07/20 12:52 01/07/20 12:47 01/07/20 12:44 01/07/20 12:42 100 01/07/20 12:37 01/07/20 12:35 01/07/20 12:34 01/07/20 12:32 01/07/20 12:27 01/07/20 12:24 01/07/20 12:22 100 01/07/20 12:17 100 01/07/20 12:14 01/07/20 12:12 100 01/07/20 12:07 100 Pain Intensity Lower Abdomen: Pain Intensity: 3 Transfer of Care Handoff Completed per policy Notes Mental Status: alert / awake / arousable Patient Amnestic to Procedure: Yes Nausea / Vomiting: adequately controlled Pain: adequately controlled Airway Patency, RR, SpO2: stable & adequate BP & HR: stable & adequate Hydration State: stable & adequate Neuraxial Anesthesia: was administered and sensory block resolved Anesthetic Complications: no major complications apparent and Pt Satisfied with anesthetic care
[2020-01-08] MEDS ORDERED: MAGNESIUM HYDROXIDE SUSP 30 ML UDC PO SCH (21:00)
[2020-01-08] MEDS ORDERED: SENNA 8.6 MG TAB PO SCH (21:00)
[2020-01-09] MEDS: OXYCODONE/ACETAMINOPHEN 5mg/325mg TAB PO PRN ×5 (02:22→21:36)
[2020-01-09] MEDS: IBUPROFEN 600 MG TAB PO PRN ×5 (02:22→21:37)
[2020-01-09 06:42] LABS: Hematocrit (blood only) 22.5 % (37-47)
--- NOTE | 2020-01-09 07:12 | Obstetrical Progress Note ---
Date of Service <Lindsay Luna DO - Last Filed: 01/09/20 07:44> January 09, 2020 Assessment & Plan <Lindsay Luna DO - Last Filed: 01/09/20 07:44> (1) care following delivery: - Feels well today. Eating well, voiding well, ambulating well. - Has remained afebrile over the past 24h; Tmax 37.3C, most recent temp 36.9C. - H/H 7.0/22.5 this morning. Pt w/o dizziness, lightheadedness, or changes in vision. Continue Iron 325mg BID. - Pain well controlled with ibuprofen 600mg Q4H PRN - Routine care -- OOB, ambulation, diet progression as tolerated - After discharge will have 2 week incision check with Dr. Alicea adn 6 week follow-up with Dr. Alicea (2) Pre-eclampsia, : Mag was d/c yesterday. Pt doing well. BPs well controlled; most recent 132/82. Pt with no headache, dizziness, or changes in vision. Will continue to monitor pt. 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 She reports feeling well overall this morning. Minimal abdominal cramping and 3/10 pain well managed on analgesics. Voiding without difficulty or dysuria. Tolerating meals overnight without nausea or vomiting. Patient has been able to ambulate some. + passing gas but no bowel movement yet. Has persistent lochia with some improvement this morning; states "it's more like a regular period now." Currently pumping and bottle feeding. Review of Systems Denies fever or chills. Denies shortness of breath or cough. Denies chest pain. Denies breast pain. Denies nausea or vomiting. Denies dysuria. Denies leg pain or leg swelling. Denies headache or changes in vision. Physical Exam <Lindsay Luna DO - Last Filed: 08/15/20 07:44> General: Alert, oriented. No acute distress. Cardiac: Regular rate and rhythm. No murmurs. Respiratory: Clear to auscultation bilaterally a/p, no wheezes/rales/rhonchi. No increased work of breathing. Symmetrical chest rise. No respiratory distress. Abdomen: Soft, nontender, nondistended. Bowel sounds present. Uterus: Uterine fundus firm, palpable ~1 cm above umbilicus. Surgical scar clean and healing well. No erythema, warmth, or discharge noted from the incision site. Lower Extremities: 1+ b/l pedal edema; swelling has improved since yesterday. No deep calf pain. Gloria's negative bilaterally. Results & Data ([facility]) <Lindsay Luna, DO - Last Filed: 01/09/20 07:44> Vital Signs (Past 12 Hours) Vital Signs Temp Pulse Resp BP 01/08/20 23:10 36.9 C 80 22 138/82 01/08/20 19:30 37.1 C 82 20 117/74 Laboratory Results H/H this mornin.0/22.5 <Mehnaz Payan MD, FACOG - Last Filed: 01/09/20 07:49> Co-Signing Physician Notes Resident Physician Supervision Note: I was present with Dr. Luna during the history and exam. I discussed the case with the resident and agree with the findings and plan as documented in the note. Any exceptions or clarifications are listed here: pt doing well, denice po, voiding, ambulating, pain control adequate. no cp/sob. no n/v. hgb is 7 but started at 9 and had c/s. pt denice hgb well as in no dizziness lightheadedness. discussed need for fe and if becomes sx may need transfusion. wants to go home but not sure baby will go home. does not want to use narcotics as outpt due to cost, plans tylenol and motrin but discussed sending small amount in case needed. in case able to go home today i did review d/c instructions. she plans pumping, rh pos. ri. bps are ok and pp preeclampsia dx noted. aware of 2hr gtt after 6wk check up. discussed pp visits. ff 2 down incision c/d/i. nt calves. see how pt denice hgb today. Documented By: Mehnaz Payan MD, FACOG
[2020-01-09] MEDS: FERROUS SULFATE 325 MG TAB PO SCH (08:00)
[2020-01-09] MEDS: cephALEXin 500 MG CAP PO SCH ×3 (08:00→20:32)
[2020-01-09] MEDS: PRENATAL VITAMIN 1 TAB PO SCH (08:00)
[2020-01-10] MEDS: OXYCODONE/ACETAMINOPHEN 5mg/325mg TAB PO PRN ×2 (04:57→09:08)
[2020-01-10] MEDS: IBUPROFEN 600 MG TAB PO PRN ×2 (04:58→09:09)
[2020-01-10] MEDS: FERROUS SULFATE 325 MG TAB PO SCH (08:19)
[2020-01-10] MEDS: PRENATAL VITAMIN 1 TAB PO SCH (08:19)
--- NOTE | 2020-01-10 08:38 | Obstetrical Progress Note ---
Date of Service January 10, 2020 Assessment & Plan (1) care following delivery: Subjective Ambulation: ambulating normally Voiding: no voiding problems Passing Gas:: Yes Diet Tolerance:: regular diet Lochia:: Small Feeding Type:: bottle feeding Current Pain Level(1-10): 0 Physical Exam Constitutional WD/WN, vitals as above Eyes PERRL, conjunctivae normal, anicteric sclerae ENMT external ear and nose normal, oropharynx normal Neck trachea midline, no thyromegaly Respiratory normal respiratory effort and able to speak in complete sentences; no respiratory distress, no labored breathing and does not use accessory muscles Cardiovascular Rate/Rhythm: regular rate and regular rhythm Extremities: no calf tenderness and no pedal edema Chest (Breasts) Breast: normal inspection of breasts Gastrointestinal (Abdomen) Inspection/Auscultation: abdomen normal to inspection and + abdominal surgical incision (c/d/i, obese abdomen); abdomen not distended Musculoskeletal no cyanosis or clubbing, extremities motor strength 5/5 Skin no rashes, warm and dry Neurologic patellar DTR's 2+ bilat, sensation intact Psychiatric A+Ox3, euthymic affect Genitourinary Speculum/Bimanual Exam: uterus nontender OB Exam Abdomen: + fundal height (at umbilicus) Fundus: + firm Results & Data ([facility]) Vital Signs (Past 12 Hours) Vital Signs Temp Pulse Resp BP Pulse Ox 01/10/20 00:00 98.2 F 67 18 113/72 97
[2020-01-10] MEDS: cephALEXin 500 MG CAP PO SCH (09:16)
--- NOTE | 2020-01-11 07:40 | Discharge Summary ---
Date of Service January 11, 2020 Admission HPI Per Admitting Provider Jing Orona is a 29 y/o female currently at 39 WGA with an BRENNAN 01/14/20 as determined by LMP who is here for IOL. Her was complicated by late presentation for care (at 30 weeks), A2GDM, and persistent chlamydia infection. It is noted that her last was about 7 years ago (delivered 10/01/12) and with that she had pre-eclampsia; the delivery was a forceps-assisted vaginal delivery. Pt is doing well this morning. She denies any specific pain. No n/v. Tolerated dinner last night. Pt did not take her nightly insulin last night; last dose of insulin was Saturday night (01/04). - contractions; + movement; - fluid loss; some minimal bloody show/blood- tinged mucus Blood type: A+ Antibody screen: neg H.2 (today) Hct: 29.6 (today) WBC: 10.81 (today) Plt: 260 (today) Rubella: immune (11/11/19) VDRL/RPR: neg (11/11/19) Gonorrhea: neg (11/11/19) Chlamydia: POSITIVE (11/11/19 and repeat positive HIV: neg (11/11/19) HbSAg: neg (11/11/19) GBS: negative (12/22/19) COVID-19 negative (01/05/20) Other screens: CF: negative SMA: negative panorama: low risk, female Discharge Data Consultations 01/07/20 07:45 Consult Anesthesiology Stat 01/07/20 10:24 Consult Case Management - Discharge Planning Routine Procedures Performed Operation Date: 01/07/20 09:30 Actual Procedures p Section in LD(Bilateral) - Gabino Alicae Jr, MD, [facility] [place] [facility] [place] Course (1) Insulin controlled gestational diabetes mellitus (GDM) during , antepartum: On day of admission the patient presented for induction for poorly controlled gestational diabetes on insulin. She was started on Pitocin for induction protocol. The patient had artificial rupture of membranes for a copious amount of clear fluid. Approximately 10 minutes after rupture of membranes the patient had a spontaneous deceleration. Physical examination at that time showed a prolapsed umbilical cord. A stat section was called and the patient was taken to the operating room where she delivered a viable female infant. The patient had Apgars of 2 7 and 10. arterial cord pH 7.0, venous cord pH 7.27 The insulin was discontinued and a 2 hour postprandial will be ordered at her 6 week check. The patient will return 2 weeks after discharge for postoperative evaluation. (2) Late care affecting : Because of the limited care a social service consult was obtained after delivery. [employer] did not feel any further evaluation by outside agencies wears indicated. (3) Pre-eclampsia, : postoperatively the patient developed hypertension. She had a stat urine protein to creatinine ratio consistent with 400 milligrams of total protein. The diagnosis of preeclampsia was made. She was started on magnesium sulfate prophylaxis and was on this for 24 hours. After discontinuation of the magnesium the patient's blood pressure returned to normal. Laboratory values for the preeclampsia or always within normal limits. (4) Skin ulcer of lower leg, limited to breakdown of skin: The patient had been diagnosed antepartum with a skin ulcer infection. Cultures grew out Proteus. This was sensitive to Keflex and the patient had been started on the Keflex prior to admission and will continue on this for 7 days. (5) Anemia due to blood loss: The patient was anemic on admission. This was felt to be secondary to iron deficiency. Because of the surgery the patient had a hemoglobin of 7 at discharge. The patient was asymptomatic and twice daily iron was recommended. An H&H will be checked at her 6 week check. (6) Chlamydia infection affecting in third trimester: The patient had multiple positive Chlamydia cultures antenatally. At 36 weeks the partner was apparently treated successfully for the 1st time. Repeat Chlamydia culture at her 6 week check. Coding Level of Care Code None Diagnoses Insulin controlled gestational diabetes mellitus (GDM) during , antepartum O24.414 Late care affecting O09.30 Pre-eclampsia, O14.95 Skin ulcer of lower leg, limited to breakdown of skin L97.901 Anemia due to blood loss D50.0 Chlamydia infection affecting in third trimester O98.813; A74.9
== END 2020-01-10 11:35 | disposition home or self-care (01) | DRG 787 ==
LOC: 4S1 07:30 → 4S2 01-08 08:28

== ENCOUNTER 2020-12-30 16:27 | Inpatient (IN) ==
[2020-12-30 17:37] LABS: Basophils # (auto) 0.01 K/uL (0-0.2); Basophils % (auto) 0.1 %; Eosinophils # (auto) 0.15 K/uL (0-0.5); Eosinophils % (auto) 1.7 %; Hematocrit (blood only) 32.5 % (37-47); Hemoglobin 10.6 g/dL (12.0-16.0); Immature Granulocytes # (auto) 0.04 K/uL (0.00-0.02); Immature Granulocytes % (auto) 0.4 %; Lymphocytes # (auto) 1.58 K/uL (1.2-3.4); Lymphocytes % (auto) 17.7 %; Mean Corpuscular Hemoglobin 28.6 pg (25-34); Mean Corpuscular Hgb Conc 32.6 g/dL (32-36); Mean Corpuscular Volume 87.8 fL (80-100); Mean Platelet Volume 10.7 fL (7.4-10.4); Monocytes # (auto) 0.78 K/uL (0.11-0.59); Monocytes % (auto) 8.8 %; Neutrophils # (auto) 6.35 K/uL (1.4-6.5); Neutrophils % (auto) 71.3 %; Platelet Count 225 K/uL (130-400); RDW Coefficient of Variation 18.1 % (11.5-14.5); RDW Standard Deviation 59.5 fL (36.4-46.3); White Blood Count 8.91 K/uL (4.8-10.8)
[2020-12-30 17:55] LABS: Albumin Level 2.4 gm/dl (3.4-5.0); BUN Creatinine Ratio 21.6 (10-20); Calcium 9.5 mg/dl (8.5-10.1); Creatinine Clr Calc Pharmacy 171.1 ml/min; Est GFR (Non-African American) 123.4 ml/min; Potassium 3.9 mmol/L (3.5-5.1)
[2020-12-30 17:57] LABS: Albumin Globulin Ratio 0.5 (0.9-2); Bilirubin,Total 0.4 mg/dl (0.2-1); Globulin 4.7 gm/dl (2.5-4.0); Total Protein 7.1 gm/dl (6.4-8.2)
[2020-12-30 18:05] LABS: Protein Creatinine Ratio Urine 0.4 (0-0.2); Total Protein Urine Random 51.7 mg/dl (0-11.9)
[2020-12-30] MEDS ORDERED: OXYTOCIN 30 UNITS/500 ML BAG IV PRN (19:38)
[2020-12-30] MEDS ORDERED: LACTATED RINGER'S 1,000 ML IV PRN (19:38)
[2020-12-30] MEDS ORDERED: LACTATED RINGER'S 1,000 ML IV SCH (19:45)
[2020-12-30] MEDS ORDERED: fentaNYL citrate 100 MCG/2 ML VIAL ONE (19:59)
[2020-12-30] MEDS ORDERED: MoRPHine SULFATE PF 1 MG/ML 10 ML AMP/VIAL ONE (19:59)
--- NOTE | 2020-12-30 20:21 | History & Physical Report ---
Date of Service December 30, 2020 Assessment & Plan (1) 37 weeks gestation of : (2) Insulin controlled gestational diabetes mellitus (GDM) during : (3) Obesity affecting , antepartum: (4) Previous delivery affecting , antepartum: (5) Preeclampsia: (6) Request for sterilization: Plan: Admit, IV, plan to proceed with section, she also continues to desire tubal ligation. She is aware of her diagnosis, preeclampsia without severe features, and recommendation for delivery and agrees. She notes unknown allergy to pcn, her mom just said she "got red". She is aware that tubal is permanent and irreversible and can fail and result in or ectopic and that she may regret doing. She continues to state desires tubal. Consent for section and tubal ligation, reviewed and signed. OR aware. Anesthesia aware. FHTs categ 1. Admission and Anticipated Discharge Date Admission Date: December 30, 2020 History of Present Illness Chief Complaint: sent from office Primary Care Provider: Rupert Patel MD 30yo at 37+wks ega presents to L&D with cc of elevated blood pressures in office. Patient was seen for her routine visit today about 4pm and noted to have elevated bp 144/108 and +1 protein. Denied and continues to deny MURPHY, visual change, RUQ pain or worsening swelling. No ROM, VB. +FM. No ctx She came to L&D and serial bps still >140/90 with rare sbp in severe range. She had labs that were normal with the exception of the urine protein/creatinine ratio which was 0.4 and known chronic anemia. She has now had a persistence of elevated bps meeting criteria for preeclampsia and recommendation to deliver. PNC c/b 1. GDM on insulin, takes 17 novalin at bedtime and in am. 2. Prior c/s, desires repeat c/s and desires btl 3. Obesity 4. GBS positive 5. Desires sterilization 6. Anemia, had iv iron infusions x 3 7. history of gastric bypass PNL RH pos, RI, GBS pos OB[facility]: x 1, LTCS x 1 [facility]: nl paps All Active Problems Group beta Strep positive Insulin controlled gestational diabetes mellitus (GDM) during Anemia affecting Obesity affecting , antepartum Previous delivery affecting , antepartum Allergies Allergy/AdvReac Type Severity Reaction Status Date / Time Penicillins Allergy Unknown Unknown Verified 12/30/20 15:31 Home Medications Medication Instructions Recorded Confirmed Type prenat.vits,sean,[id number] 1 tab PO DAILY 07/18/20 12/30/20 History insulin NPH isoph U-100 human 100 10 unit SUBCUT QPM #1 box MDD 17 10/20/20 12/30/20 Rx unit/mL (3 mL) subcutaneous pen (Novolin N Flexpen) insulin NPH isoph U-100 human 100 10 unit SUBCUT QAM 12/30/20 12/30/20 History unit/mL subcutaneous suspension (Novolin N NPH U-100 Insulin isophane) Patient History Medical History (Updated 12/30/20 @ 20:35 by Mehnaz Payan MD, FACOG) Chlamydia infection affecting in third trimester Encounter for anatomic survey Encounter for screening laboratory testing for COVID-19 virus Encounter for supervision of normal in multigravida, antepartum Hx of biophysical profile Insulin controlled gestational diabetes mellitus (GDM) during , antepartum Insulin controlled gestational diabetes mellitus in puerperium Late care affecting care following delivery BP normal, has recovered well surgically, wishes discharge today and believes infant is ready for d/c as well but peds has not yet rounded. Discussed nesting status if needed. Pre-eclampsia, Varicella vaccine Surgical History History of gastric bypass S/P cholecystectomy S/P dilation and curettage S/P wisdom tooth extraction Family History (Updated 08/09/20 @ 16:49 by Ye Gomez MD) Grandmother (Paternal) Diabetes Myocardial infarction Heart disease Grandfather (Maternal) Diabetes Myocardial infarction Other Dyslipidemia Encounter for anatomic survey Denies family history of Ovarian cancer Breast cancer Colorectal cancer Social History (Updated 07/18/20 @ 09:00 by Lesley Rojas) Smoking Status: Former smoker Hx Alcohol Use: No Hx Substance Use: No Preferred Language: Lao Communication Ability: Effective Beliefs That Will Affect Care: None marital status: Single marital status details: Marcus Ellisbrenda ( [phone] Current Living Situation: Parent, Family and Significant Other Current Living Situation Comment: lives with father and 2 children, 1 dog, current occupational status: employed current occupation: [employer] Other Information That Helps Us Care for You: No Feels Safe at Home: Yes Safety Concerns: Feels Safe At This Time Assistive Devices: None Review of Systems as per Subjective / HPI; no problem reported current cough, lingering from history of cold and allergies per pt. her baby had RSV few weeks ago. covid test neg today. Physical Exam Constitutional: WD/WN, vitals as above Gastrointestinal (Abdomen): soft gravid nt Musculoskeletal: tr edema Neurologic: grossly normal pateller dtrs +1 and no clonus Psychiatric: A+Ox3, euthymic affect Genitourinary: OB Exam Monitor Tracing: + external FHT monitor used (130 mod variability), + external uterine monitor used (irregular ctx), + category I and + normal FHT variability Results & Data ([facility]) Vital Signs (Past 12 Hours) Vital Signs Temp Pulse Resp BP 12/30/20 19:23 85 163/86 H 12/30/20 19:15 98.2 F 18 12/30/20 19:00 18 12/30/20 18:10 90 152/87 H 12/30/20 17:53 91 H 157/97 H 12/30/20 17:38 88 144/94 H 12/30/20 17:08 98.4 F 18 12/30/20 16:46 97 H 146/72 H 12/30/20 16:41 92 H 180/95 H Code Status & VTE Plan VTE Prophylaxis Plan VTE Prophylaxis will be ordered: No Coding Level of Care Code None Diagnoses 37 weeks gestation of Z3A.37 Insulin controlled gestational diabetes mellitus (GDM) during O24.414 Obesity affecting , antepartum O99.210 Previous delivery affecting , antepartum O34.219 Preeclampsia O14.90 Request for sterilization Z30.2
--- NOTE | 2020-12-30 20:40 | Anesthesiology Consultation ---
Date of Service December 30, 2020 Assessment & Plan (1) Encounter for pre-operative examination: Chart Review Chart Review: Acceptable Risk for Surgery and Patient NOT seen in Pre Admission Testing Consults Requested none History Surgery Operation Date: 12/30/20 20:45 Proposed Procedures p Section in OR(Not Applicable) - Mehnaz Payan MD, FACOG Height/Weight Height: 5 ft 6 in Weight: 108.409 kg Allergies Allergy/AdvReac Type Severity Reaction Status Date / Time Penicillins Allergy Unknown Unknown Verified 12/30/20 15:31 Medications Home Medications Medication Instructions Recorded Confirmed Last Taken prenat.vits,sean,ubw-dvly-bnbpb 1 tab PO DAILY 07/18/20 12/30/20 12/30/20 insulin NPH isoph U-100 human 100 10 unit SUBCUT QPM #1 box MDD 17 10/20/20 12/30/20 12/29/20 unit/mL (3 mL) subcutaneous pen (Novolin N Flexpen) insulin NPH isoph U-100 human 100 10 unit SUBCUT QAM 12/30/20 12/30/20 1 Day Ago unit/mL subcutaneous suspension ~12/29/20 (Novolin N NPH U-100 Insulin isophane) Active Medications Generic Name Dose Route Start Last Admin Trade Name Freq PRN Reason Stop Dose Admin Lactated Ringer's 1,000 mls @ 125 mls/hr 12/30/20 20:45 12/30/20 20:45 Lr IV 01/29/21 20:44 125 mls/hr .Q8H SOUMYA Administration Cefazolin Sodium 72.5 mls @ 130 mls/hr 12/30/20 21:00 12/30/20 20:45 Ancef 3000mg IV 12/30/20 21:34 130 mls/hr PREOP@2100 SOUMYA Administration Past Medical History Medical History Chlamydia infection affecting in third trimester Encounter for anatomic survey Encounter for screening laboratory testing for COVID-19 virus Encounter for supervision of normal in multigravida, antepartum Hx of biophysical profile Insulin controlled gestational diabetes mellitus (GDM) during , antepartum Insulin controlled gestational diabetes mellitus in puerperium Late care affecting care following delivery BP normal, has recovered well surgically, wishes discharge today and believes is ready for d/c as well but peds has not yet rounded. Discussed nesting status if needed. Pre-eclampsia, Varicella vaccine Exercise / Class Metabolic Activity II 4-5 Yardwork/Stairs/Walk up hill Past Family History Family History Grandmother (Paternal) Diabetes Myocardial infarction Heart disease Grandfather (Maternal) Diabetes Myocardial infarction Other Dyslipidemia Encounter for anatomic survey Denies family history of Ovarian cancer Breast cancer Colorectal cancer Past Surgical History Surgical History History of gastric bypass S/P cholecystectomy S/P dilation and curettage S/P wisdom tooth extraction Past Anesthesia History No Hx of Anesthesia Complications and No Family Hx of Anesthesia Complications History of PONV No Hx of PONV and No Hx of Motion Sickness Social History Smoking Status: Former smoker Hx Alcohol Use: No Hx Substance Use: No substance use type: does not use Physical Exam Vital Signs Last Vital Signs Temp 36.8 C 12/30/20 19:15 Pulse 85 12/30/20 19:23 Resp 18 12/30/20 19:15 BP 163/86 H 12/30/20 19:23 Testing Laboratory Results 12/30/20 17:28 12/30/20 17:28 Blood Type A Positive 12/30/20 17:28 Antibody Screen NEGATIVE 12/30/20 17:28 12/30/20 20:12 POC Glucose 98
[2020-12-30] MEDS: LACTATED RINGER'S 1,000 ML IV SCH (20:45)
[2020-12-30] MEDS ORDERED: CITRIC ACID/SODIUM CITRATE 15 ML UDC PO SCH (21:00)
[2020-12-30] MEDS ORDERED: CITRIC ACID/SODIUM CITRATE 15 ML UDC ONE (21:03)
[2020-12-30] MEDS ORDERED: LACTATED RINGER'S 500 ML IV PRN (21:52)
[2020-12-30] MEDS ORDERED: NALBUPHINE HCL INJ 10 MG/ML AMP IV PRN (21:52)
[2020-12-30] MEDS ORDERED: MoRPHine SULFATE PF 1 MG/ML 10 ML AMP/VIAL INT SPINAL ONE (21:52)
[2020-12-30] MEDS ORDERED: diphenhydrAMINE 50 MG/ML VIAL IV PRN (21:52)
[2020-12-30] MEDS ORDERED: NALOXONE HCL 0.08 MG in SYRINGE 1.8 ML IV PRN (21:52)
[2020-12-30] MEDS ORDERED: NALOXONE HCL 0.4 MG/1 ML VIAL/CARP IV PRN (21:52)
[2020-12-30] MEDS ORDERED: ePHEDrine sulfate 50 MG/ML AMP IV PRN (21:52)
[2020-12-30] MEDS ORDERED: NALOXONE HCL 1 MG in SODIUM CHLORIDE 0.9% 1000ML 1,000 ML IV PRN (21:52)
[2020-12-30] MEDS ORDERED: ONDANSETRON INJ 2 MG/ML 2 ML VIAL IV PRN ×2 (21:52→22:23)
[2020-12-30] MEDS ORDERED: PHENYLEPHRINE HCL 10 MG/ML VIAL ONE (21:54)
[2020-12-30] MEDS ORDERED: OXYTOCIN 10 UNITS/ML VIAL ONE (21:54)
[2020-12-30] MEDS ORDERED: ONDANSETRON INJ 2 MG/ML 2 ML VIAL ONE (21:54)
[2020-12-30] MEDS ORDERED: DC INTRASPINAL MORPHINE SCH (22:00)
[2020-12-30] MEDS ORDERED: NO NARCOTICS OR SEDATIVES SCH (22:00)
[2020-12-30] MEDS ORDERED: SODIUM CHLORIDE 0.9% 1000ML 1,000 ML IV SCH (22:00)
[2020-12-30] MEDS ORDERED: MIDAZOLAM HCL 1 MG/ML 2ML VIAL ONE (22:07)
[2020-12-30] MEDS ORDERED: BENZOCAINE 20% AER SPR 82.5 GM CAN EXT PRN (22:23)
[2020-12-30] MEDS ORDERED: PROMETHAZINE HCL 25 MG in SODIUM CHLORIDE 0.9% 50 ML IV PRN (22:23)
[2020-12-30] MEDS ORDERED: DIPHTHERIA/TETANUS/PERTUSSIS 0.5 ML SYR/VIAL IM ONE (22:23)
[2020-12-30] MEDS ORDERED: ZOLPIDEM TARTRATE 5 MG TAB PO PRN (22:23)
[2020-12-30] MEDS ORDERED: MAGNESIUM HYDROXIDE SUSP 30 ML UDC PO PRN (22:23)
[2020-12-30] MEDS ORDERED: SUPERCREAM 0.870% 15 GM JAR EXT PRN (22:23)
[2020-12-30] MEDS ORDERED: HYDROCORTISONE ACETATE 25 MG SUPP PR PRN (22:23)
[2020-12-30] MEDS ORDERED: SENNA 8.6 MG TAB PO PRN (22:23)
--- NOTE | 2020-12-30 22:23 | Post Operative Brief Note ---
PG Immediate Post Op with CF Date of Surgery December 30, 2020 Pre & Post Diagnosis Operation Date: 12/30/20 20:45 Pre-Op Diagnosis: 1. 37 weeks iup 2. prior section, desires repeat section 3. desires sterilization 4. preeclampsia 5. gestational diabetes on insulin 6. maternal obesity Post op diagnoses: same I identified the patient and participated in the time-out.: Yes Procedure Operation Date: 12/30/20 20:45 Actual Procedures 1. Repeat Low Transverse Section 2. Modified [place] Bilateral Tubal Ligation Surgeon Mehnaz Payan MD, FACOG Water Treatment Operator Dk Estimated Blood Loss 600 Findings Consistent with Post-Op Diagnosis (viable male, Apgars 8,9 normal uterus, tubes and ovaries bilaterally. adhesions of omentum to posterior rectus muscles in midline. ) Fluids 1500 Specimens Specimen Description: placenta hold cord blood to lab right portion of fallopian tube left portion of fallopian tube Drains Montero Catheter Anesthesia Type Spinal Complications none Disposition Accompanied Patient To Recovery: No Disposition: L&D
--- NOTE | 2020-12-30 22:28 | Operative Report ---
PG Post Operative Report Pre & Post Diagnosis Operation Date: 12/30/20 20:45 Pre-Op Diagnosis: 1. 37+ week IUP 2. Preeclampsia 3. Prior section, desires repeat section 4. Desires sterilization 5. Gestational Diabetes on Insulin 6. Obesity in Post-Op Diagnosis: same I identified the patient and participated in the time-out.: Yes Procedure Operation Date: 12/30/20 20:45 Actual Procedures 1. Repeat Low Transverse Section 2. Modified [place] Bilateral Tubal Ligation Surgeon Mehnaz Payan MD, FACOG Diesel Truck Driver Dk Estimated Blood Loss 600 Findings Consistent with Post-Op Diagnosis (viable male, Apgars 8,9 normal uterus, tubes and ovaries bilaterally. adhesions of omentum to posterior rectus muscles in midline. ) Fluids 1500 Specimens placenta hold cord blood portion of right fallopian tube portion of left fallopian tube Drains agarwal Anesthesia Type Spinal Complications none Disposition Accompanied Patient To Recovery: No Disposition: L&D Indications 30yo at 37 weeks with diagnosis of preeclampsia and prior history of section, desiring repeat section. She also desired tubal sterilization. She had insulin requiring gestational diabetes and last u/s efw >98%. Given her gestational age and diagnosis of preeclampsia, we recommended delivery today. Description of Procedure The patient was taken to the operating room and identified. After adequate anesthesia was obtained, she was placed in the supine position with a leftward tilt on the operating table and prepped and draped in the usual sterile fashion. A agarwal catheter had already been placed. The knife was used to create a Pfannensteil skin incision that was carried down to the underlying layer of fascia. The fascia was nicked in the midline and this opening was extended laterally using Hernandez scissors. Jameel clamps were placed on the superior and inferior aspect of the fascial incision tenting it upward and the underlying rectus muscles were dissected off the overlying fascia both sharply and bluntly using Hernandez scissors. The rectus muscles were bluntly in the midline. The peritoneal cavity was bluntly entered into. This opening was stretched. Adhesions of the omentum to the lower aspect of the underlying rectus muscles were taken down to expose the lower uterine segment. The bladder blade was placed. The vesicouterine peritoneum was elevated and opened up into and the bladder flap was created digitally and bladder blade was replaced. The knife was used to create a hysterotomy and this opening was stretched. The operators hand was placed through the hysterotomy and the bladder blade was removed. The head was elevated and flexed and with fundal pressure the head was delivered. The shoulders and body were rapidly delivered. The cord was clamped and cut and the infant's mouth and nares were bulb suction. The infant was handed off to the awaiting pediatricians. Cord blood was obtained. The placenta was manually expressed. The uterus was exteriorized and cleared of all clots and debris. Dilute IV Pitocin was begun. The uterine tone was improving. The hysterotomy was closed in a running interlocking fashion using 0 Vicryl followed by interrupted figure of eight stitches of 0 Vicryl for excellent hemostasis. Attention was turned to the left fallopian tube that was followed out to its fimbriated end. The tube was elevated using a clair clamp and a knuckle of tube was doubly ligated with 2-0 plain suture and transected. The specimen was sent. The stumps were cauterized with the bovie. The right fallopian tube was identified to its fimbriated end, elevated, double ligated and transected in a similar fashion. The specimen was sent and the stump of tube was cauterized with the bovie. The uterus was returned to the abdomen. The gutters were cleared of all clots and debris. The hysterotomy was reinspected and noted to be hemostatic. The tubal sites were intact and hemostatic. The fascia was then closed in running fashion using 0 Vicryl. The subcutaneous fat was copiously irrigated and reapproximated using 2-0 chromic. The skin was closed in a subcuticular fashion using 4-0 Vicryl. At this point the procedure was terminated. The patient was transferred to the recovery room in stable condition. All sponge, lap and needle counts are correct x2. I attest to the content of the Intraoperative Record and any orders documented therein. Any exceptions are noted below. OB Procedure charges OB Charges [id number] C/S w/ Tubal
--- NOTE | 2020-12-30 23:01 | Anesthesiology Progress Note ---
Date of Service December 30, 2020 Anesthesia Post Procedure Vital Signs Vital Signs: Temp Pulse Resp BP Pulse Ox 12/30/20 22:57 72 170/84 H 12/30/20 22:56 68 99 12/30/20 22:51 69 95 12/30/20 22:47 58 L 169/85 H 12/30/20 22:46 64 97 12/30/20 22:41 64 98 12/30/20 22:37 67 183/89 H 12/30/20 22:36 67 98 12/30/20 19:23 85 163/86 H 12/30/20 19:15 36.8 C 18 12/30/20 19:00 18 12/30/20 18:10 90 152/87 H 12/30/20 17:53 91 H 157/97 H 12/30/20 17:38 88 144/94 H 12/30/20 17:08 36.9 C 18 12/30/20 16:46 97 H 146/72 H 12/30/20 16:41 92 H 180/95 H Transfer of Care Handoff Completed per policy Notes Mental Status: alert / awake / arousable and participated in evaluation Patient Amnestic to Procedure: No Nausea / Vomiting: adequately controlled Pain: adequately controlled Airway Patency, RR, SpO2: stable & adequate BP & HR: stable & adequate Hydration State: stable & adequate Neuraxial Anesthesia: was administered and sensory block is resolving Anesthetic Complications: no major complications apparent and Pt Satisfied with anesthetic care
[2020-12-30] MEDS: KETOROLAC 30 MG/ML VIAL IV PRN (23:30)
[2020-12-30] MEDS: OXYTOCIN 20 UNITS in LACTATED RINGER'S 1,000 ML IV SCH (23:36)
[2020-12-30] MEDS ORDERED: LABETALOL HCL IV 5 MG/ML 20ML IV STA (23:39)
[2020-12-30] MEDS ORDERED: MAG SULFATE 4GM BOLUS FROM BAG IV ONE (23:39)
--- NOTE | 2020-12-30 23:45 | Obstetrical Progress Note ---
Date of Service December 30, 2020 Assessment & Plan (1) Preeclampsia: (2) care following delivery: Plan: I am concerned about her now more elevated bps postdelivery and reviewed with couple and rec magnesium sulfate seizure prophylaxis and explained why. Apparently she had after last . She has agarwal in place. I do feel need to use IV labetalol to try to bring down bp now. She is aware of such too. Nursing aware of plan. Will see how her bp responds. Support given for her emotions, she denies any specific concern or complaint despite asking several times and will let us know if she has any needs moving forward. Admission and Anticipated Discharge Date Admission Date: December 30, 2020 Subjective pt denies farley or visual change. having some postop pain but feels emotional. crying. has not really seen the baby since surgery due to baby in nursery. Review of Systems Constitutional: as per Subjective / HPI Physical Exam Constitutional: WD/WN, vitals as above (BPs elevated since delivery SBP >160 persistently) Results & Data ([facility]) Vital Signs (Past 12 Hours) Vital Signs Temp Pulse Resp BP Pulse Ox 12/30/20 23:37 70 185/102 H 12/30/20 23:36 72 100 12/30/20 23:31 66 98 12/30/20 23:27 67 177/91 H 12/30/20 23:26 65 97 12/30/20 23:21 67 96 12/30/20 23:17 69 177/90 H 12/30/20 23:16 63 98 12/30/20 23:11 68 97 12/30/20 23:07 62 167/86 H 12/30/20 23:06 61 99 12/30/20 23:01 63 98 12/30/20 22:57 72 170/84 H 12/30/20 22:56 68 99 12/30/20 22:51 69 95 12/30/20 22:47 58 L 169/85 H 12/30/20 22:46 64 97 12/30/20 22:41 64 98 12/30/20 22:37 67 183/89 H 12/30/20 22:36 67 98 12/30/20 19:23 85 163/86 H 12/30/20 19:15 98.2 F 18 12/30/20 19:00 18 12/30/20 18:10 90 152/87 H 12/30/20 17:53 91 H 157/97 H 12/30/20 17:38 88 144/94 H 12/30/20 17:08 98.4 F 18 12/30/20 16:46 97 H 146/72 H 12/30/20 16:41 92 H 180/95 H PG Care Time/CCT Total # of Minutes Spent Total Time Spent with Patient: Total time spent is greater than 50% in coordination of care (as documented) at patient's floor/unit and/or counseling patient: Coding Level of Care Code None Diagnoses Preeclampsia O14.90 care following delivery Z39.2
[2020-12-31] MEDS: MAGNESIUM SULFATE / WTR 40 GM/1,000 ML BAG IV SCH ×2 (00:03→18:28)
[2020-12-31] MEDS: LACTATED RINGER'S 1,000 ML IV SCH ×6 (05:19→20:48)
[2020-12-31] MEDS ORDERED: CITRIC ACID/SODIUM CITRATE 15 ML UDC PO SCH (06:00)
[2020-12-31] MEDS: KETOROLAC 30 MG/ML VIAL IV PRN ×2 (06:40→12:40)
[2020-12-31 06:42] LABS: Basophils # (auto) 0.02 K/uL (0-0.2); Basophils % (auto) 0.2 %; Eosinophils # (auto) 0.08 K/uL (0-0.5); Eosinophils % (auto) 0.7 %; Hematocrit (blood only) 27.8 % (37-47); Hemoglobin 9.1 g/dL (12.0-16.0); Immature Granulocytes # (auto) 0.04 K/uL (0.00-0.02); Immature Granulocytes % (auto) 0.3 %; Lymphocytes # (auto) 1.36 K/uL (1.2-3.4); Lymphocytes % (auto) 11.4 %; Mean Corpuscular Hemoglobin 28.8 pg (25-34); Mean Corpuscular Hgb Conc 32.7 g/dL (32-36); Mean Platelet Volume 10.5 fL (7.4-10.4); Monocytes # (auto) 0.68 K/uL (0.11-0.59); Monocytes % (auto) 5.7 %; Neutrophils # (auto) 9.74 K/uL (1.4-6.5); Neutrophils % (auto) 81.7 %; Platelet Count 193 K/uL (130-400); Red Blood Count 3.16 M/uL (4.2-5.4); White Blood Count 11.92 K/uL (4.8-10.8)
[2020-12-31 07:06] LABS: Albumin Globulin Ratio 0.5 (0.9-2); Albumin Level 1.9 gm/dl (3.4-5.0); BUN Creatinine Ratio 19.6 (10-20); Bilirubin,Total 0.3 mg/dl (0.2-1); Calcium 7.8 mg/dl (8.5-10.1); Creatinine Clr Calc Pharmacy 186.4 ml/min; Est GFR (African American) 147.1 ml/min; Est GFR (Non-African American) 126.9 ml/min; Globulin 3.6 gm/dl (2.5-4.0); Potassium 3.7 mmol/L (3.5-5.1); Total Protein 5.5 gm/dl (6.4-8.2)
[2020-12-31] MEDS: OXYTOCIN 20 UNITS in LACTATED RINGER'S 1,000 ML IV SCH (07:29)
[2020-12-31] MEDS: MoRPHine SULFATE 2 MG/ML CARP IV PRN ×2 (07:36→10:26)
[2020-12-31] MEDS ORDERED: CALCIUM CARBONATE 500 MG CHEWABLE TAB PO PRN (08:24)
--- NOTE | 2020-12-31 08:29 | Obstetrical Progress Note ---
Date of Service December 31, 2020 Assessment & Plan (1) care following delivery: (2) Preeclampsia, severe: was started pp on magnesium due to her bps. had one dose of IV labetalol and then improved. magnesium at 2g/h. Urine output adeq. no concerning sx. ordered TUMS and cough suppressant. Labs noted. c/w magnesium for 24hr reviewed with patient. Day #:: 1 Subjective Voiding: agarwal catheter in place Passing Gas:: No Diet Tolerance:: clear liquids Lochia:: Small In bed with magnesium and s/p c/s. feels better today. less emotional, says baby is doing well. no farley or visual change. no ruq pain. has some heartburn and used TUMS for that in and would like to try. Also still with cough. Has some shoulder pain on right but no incisional pain. Urine output about 50cc per hour. Review of Systems per HPI Physical Exam Constitutional WD/WN, vitals as above Respiratory normal respiratory effort, lungs clear to auscultation Cardiovascular Rate/Rhythm: regular rate and regular rhythm Gastrointestinal (Abdomen) Inspection/Auscultation: abdomen normal to inspection Percussion/Palpation: abdomen soft Fundus firm 2cm down Musculoskeletal nt calves trace edema Neurologic grossly normal, DTRs +1 no clonus Psychiatric A+Ox3, euthymic affect Results & Data ([facility]) Vital Signs (Past 12 Hours) Vital Signs Temp Pulse Resp BP Pulse Ox 12/31/20 08:24 84 96 12/31/20 08:19 89 97 12/31/20 08:14 83 98 12/31/20 08:09 78 96 12/31/20 08:08 74 121/72 12/31/20 08:04 79 96 12/31/20 07:59 79 95 12/31/20 07:54 74 96 12/31/20 07:52 75 93 12/31/20 07:49 77 96 12/31/20 07:44 78 96 12/31/20 07:39 83 97 12/31/20 07:38 75 124/67 12/31/20 07:34 75 97 12/31/20 07:29 90 98 12/31/20 07:24 81 98 12/31/20 07:19 91 H 99 12/31/20 07:14 90 97 12/31/20 07:09 81 99 12/31/20 07:07 86 135/73 08 07:04 82 133/70 97 12/31/20 06:59 88 96 12/31/20 06:54 77 95 12/31/20 06:49 84 97 12/31/20 06:44 84 98 12/31/20 06:39 83 98 12/31/20 06:34 83 97 12/31/20 06:29 85 96 12/31/20 06:24 93 H 97 12/31/20 06:19 88 94 12/31/20 06:15 78 94 12/31/20 06:14 79 95 12/31/20 06:09 77 95 08 06:07 78 94 12/31/20 06:04 80 96 12/31/20 06:00 16 12/31/20 05:59 76 121/61 95 12/31/20 05:58 80 94 12/31/20 05:54 80 94 12/31/20 05:53 77 94 12/31/20 05:48 75 94 12/31/20 05:43 74 94 12/31/20 05:38 76 95 12/31/20 05:33 78 95 08 05:32 77 94 08 05:28 75 94 12/31/20 05:26 76 94 12/31/20 05:23 78 96 12/31/20 05:20 75 94 12/31/20 05:18 76 95 08 05:15 74 94 12/31/20 05:13 82 97 12/31/20 05:10 18 12/31/20 05:08 84 94 12/31/20 05:03 76 94 12/31/20 05:01 73 94 12/31/20 04:58 72 96 08 04:54 85 93 12/31/20 04:53 80 95 0807 04:48 75 94 12/31/20 04:43 77 95 0807 04:42 77 94 0807 04:38 77 94 08 04:37 77 94 0807 04:33 74 95 0807 04:32 74 94 0807 04:28 76 95 12/31/20 04:26 75 94 08 04:23 75 95 12/31/20 04:18 72 95 12/31/20 04:17 75 94 12/31/20 04:13 84 96 12/31/20 04:09 76 94 08 04:08 78 95 12/31/20 04:03 74 95 12/31/20 04:00 18 12/31/20 03:59 75 127/74 12/31/20 03:58 76 97 12/31/20 03:53 83 97 12/31/20 03:48 94 H 97 12/31/20 03:43 77 96 12/31/20 03:38 78 97 12/31/20 03:33 76 97 12/31/20 03:28 78 96 12/31/20 03:23 80 98 12/31/20 03:18 79 96 12/31/20 03:13 77 97 12/31/20 03:12 83 122/76 94 12/31/20 03:07 89 97 12/31/20 03:04 80 94 12/31/20 03:02 77 95 12/31/20 03:00 18 12/31/20 02:57 76 95 12/31/20 02:55 77 94 12/31/20 02:52 77 95 08 02:51 75 122/71 12/31/20 02:49 76 94 12/31/20 02:47 76 95 12/31/20 02:44 80 94 12/31/20 02:42 78 96 12/31/20 02:39 76 94 12/31/20 02:37 76 95 12/31/20 02:33 77 94 12/31/20 02:32 74 95 12/31/20 02:27 78 93 12/31/20 02:22 76 119/66 93 12/31/20 02:18 78 94 12/31/20 02:17 78 94 08 02:12 75 94 12/31/20 02:07 75 93 08 02:04 75 94 12/31/20 02:02 77 94 12/31/20 02:00 16 12/31/20 01:57 77 93 12/31/20 01:52 72 95 12/31/20 01:51 70 119/65 12/31/20 01:47 71 94 12/31/20 01:46 74 94 12/31/20 01:42 77 93 12/31/20 01:37 76 94 12/31/20 01:32 75 94 12/31/20 01:30 74 94 12/31/20 01:27 74 94 12/31/20 01:25 73 94 12/31/20 01:22 75 96 12/31/20 01:18 75 93 12/31/20 01:17 77 94 12/31/20 01:13 80 92 12/31/20 01:12 73 98 12/31/20 01:07 76 96 12/31/20 01:05 77 121/74 12/31/20 01:02 73 95 12/31/20 00:57 71 96 12/31/20 00:53 76 92 12/31/20 00:52 73 96 12/31/20 00:50 16 127/80 12/31/20 00:48 77 92 12/31/20 00:47 69 95 12/31/20 00:42 72 95 12/31/20 00:37 70 97 12/31/20 00:36 76 158/82 H 12/31/20 00:32 66 93 12/31/20 00:27 73 95 12/31/20 00:22 74 95 12/31/20 00:17 81 98 12/31/20 00:16 78 92 12/31/20 00:13 72 18 167/84 H 12/31/20 00:11 71 99 12/31/20 00:06 80 96 12/31/20 00:02 70 94 12/31/20 00:01 66 96 12/31/20 00:00 18 12/30/20 23:57 64 179/89 H 12/30/20 23:56 68 98 12/30/20 23:51 73 98 12/30/20 23:47 66 174/102 H 12/30/20 23:46 64 98 12/30/20 23:41 78 98 12/30/20 23:37 70 185/102 H 12/30/20 23:36 72 100 12/30/20 23:31 66 98 12/30/20 23:27 67 177/91 H 12/30/20 23:26 65 97 12/30/20 23:21 67 96 12/30/20 23:17 69 177/90 H 12/30/20 23:16 63 98 12/30/20 23:11 68 97 12/30/20 23:07 62 167/86 H 12/30/20 23:06 61 99 12/30/20 23:01 63 98 12/30/20 22:57 72 170/84 H 12/30/20 22:56 68 99 12/30/20 22:51 69 95 12/30/20 22:47 58 L 169/85 H 12/30/20 22:46 64 97 12/30/20 22:41 64 98 12/30/20 22:40 97.3 F L 18 183/89 H 12/30/20 22:37 67 183/89 H 12/30/20 22:36 67 98
[2020-12-31] MEDS: guaiFENesin/DEXTROM SYRUP 200MG/20MG 10ML UDC PO PRN ×3 (09:13→20:52)
[2020-12-31] MEDS: FERROUS SULFATE 325 MG TAB PO SCH (09:13)
[2020-12-31] MEDS: PRENATAL VITAMIN 1 TAB PO SCH (09:13)
[2020-12-31] MEDS: DOCUSATE SODIUM 100 MG CAP PO SCH ×2 (09:13→20:57)
[2020-12-31] MEDS: SIMETHICONE 80 MG CHEW PO SCH ×4 (09:13→20:48)
[2020-12-31] MEDS ORDERED: diphenhydrAMINE 50 MG/ML VIAL IV PRN (15:52)
[2020-12-31] MEDS ORDERED: diphenhydrAMINE Capsule 25 MG CAP PO PRN (15:52)
[2020-12-31] MEDS ORDERED: KETOROLAC 30 MG/ML VIAL IV PRN (15:52)
[2020-12-31] MEDS ORDERED: ZOLPIDEM TARTRATE 5 MG TAB PO PRN (15:52)
[2020-12-31] MEDS: IBUPROFEN 600 MG TAB PO PRN ×2 (16:07→20:48)
[2020-12-31] MEDS: oxyCODONE/ACETAMINOPHEN 5mg/325mg TAB PO PRN ×2 (16:07→20:50)
[2020-12-31] MEDS ORDERED: bisacodyL 5 MG TABEC PO SCH (20:00)
[2021-01-01] MEDS: IBUPROFEN 600 MG TAB PO PRN ×3 (00:21→12:09)
[2021-01-01] MEDS: oxyCODONE/ACETAMINOPHEN 5mg/325mg TAB PO PRN ×3 (02:16→12:10)
[2021-01-01] MEDS: guaiFENesin/DEXTROM SYRUP 200MG/20MG 10ML UDC PO PRN (04:06)
[2021-01-01 06:30] LABS: Hematocrit (blood only) 22.8 % (37-47); Hemoglobin 7.2 g/dL (12.0-16.0)
--- NOTE | 2021-01-01 07:08 | Obstetrical Progress Note ---
Date of Service January 01, 2021 Assessment & Plan (1) Preeclampsia, severe: Asymptomatic w/r/t preeclampsia this morning (no farley, vision change, RUQ pain) and BP normalized. Will be OK if she wants to go home today but can also stay until tomorrow; pt undecided. D/C instructions reviewed and Rx sent if she decides to go. 1wk BP check after home. Subjective Ambulation: ambulating normally Voiding: no voiding problems Passing Gas:: Yes Diet Tolerance:: regular diet Lochia:: Small Feeding Type:: breast feeding Physical Exam Constitutional WD/WN, vitals as above Eyes PERRL, conjunctivae normal, anicteric sclerae Neck normal visual inspection Respiratory normal respiratory effort and able to speak in complete sentences; no respiratory distress and no labored breathing Cardiovascular Rate/Rhythm: regular rate and regular rhythm Extremities: no edema Chest (Breasts) Chest: normal inspection of chest Gastrointestinal (Abdomen) Inspection/Auscultation: abdomen normal to inspection Soft, postgravid. Morbidly obese. Dressing removed, incision c/d/i Psychiatric A+Ox3, euthymic affect Genitourinary OB Exam Abdomen: + fundal height Fundus: + firm and + relation to umbilicus (fundus just below umbilicus); not tender Results & Data ([facility]) Vital Signs (Past 12 Hours) Vital Signs Temp Pulse Pulse Resp BP BP Pulse Ox 01/01/21 04:05 98.1 F 88 18 113/69 95 01/01/21 00:15 98.2 F 91 H 18 108/68 95 12/31/20 23:01 20 12/31/20 22:41 88 96 12/31/20 22:38 93 H 122/56 L 12/31/20 22:36 90 96 12/31/20 22:31 92 H 96 12/31/20 22:26 100 H 96 12/31/20 22:21 100 H 96 12/31/20 22:16 99 H 96 12/31/20 22:11 86 96 12/31/20 22:08 88 123/59 L 12/31/20 22:06 96 H 97 12/31/20 22:01 90 99 12/31/20 21:56 104 H 97 12/31/20 21:51 93 H 96 12/31/20 21:46 97 H 95 12/31/20 21:45 18 12/31/20 21:41 100 H 98 12/31/20 21:38 97 H 138/71 12/31/20 21:36 105 H 97 12/31/20 21:31 94 H 96 12/31/20 21:26 91 H 95 12/31/20 21:21 91 H 97 12/31/20 21:16 101 H 96 12/31/20 21:11 93 H 95 12/31/20 21:08 91 H 127/60 12/31/20 21:06 90 95 12/31/20 21:01 92 H 96 12/31/20 20:56 95 H 97 12/31/20 20:51 96 H 96 12/31/20 20:46 94 H 97 12/31/20 20:41 96 H 95 12/31/20 20:38 99 H 129/60 12/31/20 20:36 95 H 97 12/31/20 20:31 98 H 97 12/31/20 20:30 20 12/31/20 20:26 95 H 97 12/31/20 20:21 98 H 98 12/31/20 20:16 95 H 96 12/31/20 20:11 88 97 12/31/20 20:08 91 H 140/67 12/31/20 20:06 91 H 97 12/31/20 20:01 92 H 95 12/31/20 19:56 98 H 96 12/31/20 19:51 95 H 96 12/31/20 19:46 100 H 95 12/31/20 19:41 89 95 12/31/20 19:38 92 H 146/70 H 12/31/20 19:36 91 H 95 12/31/20 19:31 92 H 96 12/31/20 19:30 98.4 F 18 12/31/20 19:26 95 H 94 12/31/20 19:21 95 H 95 12/31/20 19:16 98 H 94 12/31/20 19:11 95 H 95
[2021-01-01] MEDS: SIMETHICONE 80 MG CHEW PO SCH ×2 (07:32→12:09)
[2021-01-01] MEDS: DOCUSATE SODIUM 100 MG CAP PO SCH (07:33)
[2021-01-01] MEDS: PRENATAL VITAMIN 1 TAB PO SCH (07:33)
[2021-01-01] MEDS: FERROUS SULFATE 325 MG TAB PO SCH (07:33)
[2021-01-01] MEDS ORDERED: bisacodyL 10 MG SUPP PR PRN (22:23)
--- NOTE | 2021-01-04 09:40 | Discharge Summary ---
Date of Service Day of admission: December 30, 2020 Day of discharge: January 01, 2021 Admission HPI Per Admitting Provider 30yo at 37+wks stewart presents to L&D with cc of elevated blood pressures in office. Patient was seen for her routine visit today about 4pm and noted to have eleva darius bp 144/108 and +1 protein. Denied and continues to deny MURPHY, visual change, RUQ pain or worsening swelling. No ROM, VB. +FM. No ctx She came to L&D and serial bps still >140/90 with rare sbp in severe range. She had labs that were normal with the exception of the urine protein/creatinine ratio which was 0.4 and known chronic anemia. She has now had a persistence of elevated bps meeting criteria for preeclampsia and recommendation to deliver. PNC c/b 1. GDM on insulin, takes 17 novalin at bedtime and in am. 2. Prior c/s, desires repeat c/s and desires btl 3. Obesity 4. GBS positive 5. Desires sterilization 6. Anemia, had iv iron infusions x 3 7. history of gastric bypass Discharge Data Consultations 12/30/20 19:38 Consult Anesthesiology Stat Procedures Performed Operation Date: 12/30/20 20:45 Actual Procedures Repeat Low Transverse Section Modified [place] Bilateral Tubal Ligation Hospital Course (1) Previous delivery affecting , antepartum: (2) Obesity affecting , antepartum: (3) Insulin controlled gestational diabetes mellitus (GDM) during : (4) Preeclampsia, severe: The patient underwent the above stated procedure without incident and her postoperative course and recovery was complicated by severe range blood pressures prompting 24hr of iv magnesium sulfate seizure prophylaxis. She required on dose of IV labetalol as well. Subsequent blood pressures improved. On her postoperative day #2 she was tolerating a regular diet, voiding spontaneously, ambulating without problem and was using oral meds for adequate pain control. Her postoperative hemoglobin was 7.2. She was given written and verbal discharge instructions and told to followup in office at 6wks. She also needs to followup in one week in office for bp check due to her above stated diagnoses. She was given appropriate pain medicine prescriptions. Coding Level of Care Code None Diagnoses Previous delivery affecting , antepartum O34.219 Obesity affecting , antepartum O99.210 Insulin controlled gestational diabetes mellitus (GDM) during O24.414 Preeclampsia, severe O14.10
== END 2021-01-01 13:30 | disposition home or self-care (01) | DRG 788 ==
LOC: OPB 16:27 → 4S2 16:29